=== PATIENT | female | born 1940 | race Two or more races ===

== ENCOUNTER 2020-11-11 13:07 | Inpatient (IN) | payer SELFPAY ==
[~2020-11-11] VITALS: Ht 157.5 cm; Wt 72.6 kg
[2020-11-11 13:15] VITALS: BP 134/65
[2020-11-11] MEDS ORDERED: Morphine Sulfate 4mg/ml Inj (IV USE ONLY) IVP ONE (13:30)
[2020-11-11 13:57] LABS: BASOPHILS % (AUTO) 0.4 % (0.0-2.0); EOSINOPHILS % (AUTO) 0.1 % (0.0-3.0); HEMATOCRIT 40.9 % (37.0-47.0); HEMOGLOBIN 13.6 G/DL (12.0-16.0); LYMPHOCYTES % (AUTO) 14.2 % (20.0-45.0); MEAN CORPUSCULAR VOLUME 95 FL (80-99); MONOCYTES % (AUTO) 4.1 % (1.0-10.0); NEUTROPHILS % (AUTO) 81.1 % (45.0-75.0); PLATELET COUNT 255 K/UL (150-450); RED CELL DISTRIBUTION WIDTH 11.9 % (11.6-14.8); WHITE BLOOD COUNT 12.8 K/UL (4.8-10.8)
[2020-11-11 14:04] LABS: APPEARANCE,URINE CLEAR; BILIRUBIN, URINE NEGATIVE (NEGATIVE); COLOR,URINE PALE YELLOW; GLUCOSE, URINE (UA) 4+ (NEGATIVE); KETONES,URINE NEGATIVE (NEGATIVE); LEUKOCYTE ESTERASE ,URINE NEGATIVE (NEGATIVE); NITRITE,URINE NEGATIVE (NEGATIVE); PH,URINE 5 (4.5-8.0); PROTEIN,URINE NEGATIVE (NEGATIVE); UROBILINOGEN,URINE NORMAL MG/DL (0.0-1.0)
[2020-11-11 14:14] LABS: INR 0.9 (0.9-1.1)
--- NOTE | 2020-11-11 14:17 | Diagnostic Imaging Report ---
Indication: Left hip pain, status post trip and fall Technique: Noncontrast spiral acquisitions obtained through the pelvis. Multiplanar reconstructions generated. Total dose length product 139 mGycm. CTDIvol(s) over mGy. Dose reduction achieved using automated exposure control Comparison: none Findings: This area is an angulated comminuted fracture of the left hip intertrochanteric region. No evidence of acute pelvic fracture. There is an old healed fracture deformity of the right inferior pubic ramus. No evidence of significant soft tissue contusion or pelvic hematoma. There is a small ventral hernia just below the umbilicus that contains only fat. There is colonic diverticulosis. The bladder is empty, contains a Kelly catheter. Impression: Positive for left hip intertrochanteric fracture Old healed right inferior pubic ramus fracture deformity. Other findings as noted, including Kelly catheter , colonic diverticulosis, ventral hernia which contains only fat The CT scanner at [facility] is accredited by the [employer] and the scans are performed using protocols designed to limit radiation exposure to as low as reasonably achievable to attain images of sufficient resolution adequate for diagnostic evaluation.
[2020-11-11 14:19] LABS: ANION GAP 11 mmol/L (5-15); BLOOD UREA NITROGEN 16 mg/dL (7-18); CALCIUM 9.1 MG/DL (8.5-10.1); CARBON DIOXIDE 25 MMOL/L (21-32); CHLORIDE 101 MMOL/L (98-107); CREATININE 0.9 MG/DL (0.55-1.30); POTASSIUM 3.6 MMOL/L (3.5-5.1); SODIUM 137 MMOL/L (136-145)
[2020-11-11 14:28] LABS: ALANINE AMINOTRANSFERASE 17 U/L (12-78); ALBUMIN 3.5 G/DL (3.4-5.0); ALBUMIN/GLOBULIN RATIO 0.9 (1.0-2.7); ALKALINE PHOSPHATASE 85 U/L (46-116); ASPARTATE AMINO TRANSFERASE 15 U/L (15-37); BILIRUBIN,TOTAL 0.3 MG/DL (0.2-1.0)
--- NOTE | 2020-11-11 14:30 | Emergency Room Report ---
History of Present Illness General Chief Complaint: Multiple Trauma/Fall Source: Patient Present Illness HPI Nonsyncopal fall. Left hip pain. Transported by paramedics. Patient does not remember the fall but family reported there was no loss of consciousness. Patient has 8/10 left hip pain with any movement. She is unable to ambulate. Patient denies exposure to Covid positive contacts. Patient has a history of diabetes. No fevers, chills, sore throat, chest pain, palpitations, nausea, vomiting, diarrhea, dysuria, abdominal pain, shortness of breath, rashes, dizziness, headache. Allergies: Coded Allergies: No Known Allergies (Unverified , 11/11/20) COVID-19 Screening Contact w/high risk pt: No Experienced COVID-19 symptoms?: No COVID-19 Testing performed HOME CARE COMPANION: No Patient History Past Medical History: see triage record, DM Past Surgical History: other - fracture R wrist Social History: Denies: smoking, alcohol use, drug use Social History Narrative from [facility] Reviewed Nursing Documentation: PMH: Agreed; PSxH: Agreed Nursing Documentation-PMH Hx Diabetes: Yes Review of Systems All Other Systems: negative except mentioned in HPI Physical Exam Vital Signs Date Time Temp Pulse Resp B/P (MAP) Pulse Ox O2 Delivery O2 Flow Rate FiO2 11/11/20 13:03 98.2 96 18 134/65 (88) 98 Room Air Sp02 EP Interpretation: reviewed, normal General Appearance: well appearing, no apparent distress, GCS 15 Head: normocephalic Eyes: bilateral eye normal inspection, bilateral eye PERRL, bilateral eye EOMI ENT: moist mucus membranes Neck: full range of motion, supple, no bony tend Respiratory: chest non-tender, lungs clear, normal breath sounds Cardiovascular #1: regular rate, rhythm, other - Venous disease lower extremities Cardiovascular #2: 2+ radial (R), 2+ dorsalis pedis (L) Gastrointestinal: normal inspection, normal bowel sounds, non tender, no mass, non-distended Genitourinary: no CVA tenderness Musculoskeletal: back normal, pelvis stable, tender - Left hip with any passive range of motion, other - Shortening and external rotation of left lower extremity Neurologic: alert, oriented x3, grossly normal Psychiatric: mood/affect normal Skin: warm/dry, other - Venous disease Medical Decision Making Diagnostic Impression: Primary Impression: Closed left hip fracture Qualified Codes: S72.002A - Fracture of unspecified part of neck of left femur, initial encounter for closed fracture Additional Impression: Hyperglycemia ER Course Patient presents with nonsyncopal fall with left hip pain. Differential includes hip fracture, pelvic fracture, hip contusion amongst others. Based on exam hip fracture highly suspect. Evaluation with preoperative labs and EKG. Chest x-ray and CT of the pelvis and left hip ordered. Patient analgesia ordered also. EKG no injury. Poor quality. Chest x-ray unremarkable. Labs with slightly elevated white count and elevated blood glucose. CT of the pelvis and hip revealed left hip fracture see below. Patient improved with treatment. Patient needs operative repair of left hip. Patient admitted to medical floor. Contact Dr. Haddad and Dr. Del Real. Laboratory Tests Test 11/11/20 13:20 White Blood Count 12.8 K/UL (4.8-10.8) H Red Blood Count 4.30 M/UL (4.20-5.40) Hemoglobin 13.6 G/DL (12.0-16.0) Hematocrit 40.9 % (37.0-47.0) Mean Corpuscular Volume 95 FL (80-99) Mean Corpuscular Hemoglobin 31.6 PG (27.0-31.0) H Mean Corpuscular Hemoglobin Concent 33.2 G/DL (32.0-36.0) Red Cell Distribution Width 11.9 % (11.6-14.8) Platelet Count 255 K/UL (150-450) Mean Platelet Volume 7.6 FL (6.5-10.1) Neutrophils (%) (Auto) 81.1 % (45.0-75.0) H Lymphocytes (%) (Auto) 14.2 % (20.0-45.0) L Monocytes (%) (Auto) 4.1 % (1.0-10.0) Eosinophils (%) (Auto) 0.1 % (0.0-3.0) Basophils (%) (Auto) 0.4 % (0.0-2.0) Prothrombin Time 10.3 SEC (9.30-11.50) Prothrombin Time INR 0.9 (0.9-1.1) Activated Partial Thromboplast Time 24 SEC (23-33) Urine Color Pale yellow Urine Appearance Clear Urine pH 5 (4.5-8.0) Urine Specific [place] 1.015 (1.005-1.035) Urine Protein Negative (NEGATIVE) Urine Glucose (UA) 4+ (NEGATIVE) H Urine Ketones Negative (NEGATIVE) Urine Blood Negative (NEGATIVE) Urine Nitrite Negative (NEGATIVE) Urine Bilirubin Negative (NEGATIVE) Urine Urobilinogen Normal MG/DL (0.0-1.0) Urine Leukocyte Esterase Negative (NEGATIVE) Urine RBC 0-2 /HPF (0 - 2) Urine WBC 0-2 /HPF (0 - 2) Urine Squamous Epithelial Cells Occasional /LPF Urine Bacteria Occasional /HPF (NONE) Sodium Level 137 MMOL/L (136-145) Potassium Level 3.6 MMOL/L (3.5-5.1) Chloride Level 101 MMOL/L (98-107) Carbon Dioxide Level 25 MMOL/L (21-32) Anion Gap 11 mmol/L (5-15) Blood Urea Nitrogen 16 mg/dL (7-18) Creatinine 0.9 MG/DL (0.55-1.30) Estimated Glomerular Filtration Rate > 60 mL/min (>60) Glucose Level 302 MG/DL (74-106) H Calcium Level 9.1 MG/DL (8.5-10.1) Total Bilirubin 0.3 MG/DL (0.2-1.0) Aspartate Amino Transferase (AST) 15 U/L (15-37) Alanine Aminotransferase (ALT) 17 U/L (12-78) Alkaline Phosphatase 85 U/L (46-116) Total Protein 7.4 G/DL (6.4-8.2) Albumin 3.5 G/DL (3.4-5.0) Globulin 3.9 g/dL Albumin/Globulin Ratio 0.9 (1.0-2.7) L Microbiology Date/Time Source Procedure Growth Status 11/11/20 15:00 Nasopharynx SARS-CoV-2 Antigen (Rapid)(SUZI) - Final Complete EKG Diagnostic Results Rate: normal Rhythm: NSR ST Segments: no acute changes Rhythm Strip Diag. Results EP Interpretation: yes Rhythm: NSR, no PVC's, no ectopy Chest X-Ray Diagnostic Results Chest X-Ray Diagnostic Results : Chest X-Ray Ordered: Yes # of Views/Limited/Complete: 1 View Indication: Other EP Interpretation: Yes Interpretation: no consolidation, no effusion, no pneumothorax Impression: No acute disease Electronically Signed by: Electronically signed by Jeremiah Verma MD CT/MRI/US Diagnostic Results CT/MRI/US Diagnostic Results : Imaging Test Ordered: L hip pelvis Impression Intertrochanteric fx angulated Impression: Positive for left hip intertrochanteric fracture Old healed right inferior pubic ramus fracture deformity. Other findings as noted, including Kelly catheter , colonic diverticulosis, ventral hernia which contains only fat Last Vital Signs Date Time Temp Pulse Resp B/P (MAP) Pulse Ox O2 Delivery O2 Flow Rate FiO2 11/11/20 17:52 98.2 97 18 135/77 95 Room Air Status: improved Disposition: ADMITTED INPATIENT Condition: Serious Referrals: NOT CHOSEN IPA/,REFERRING (PCP) Jeremiah Verma MD Nov 11, 2020 14:30
[2020-11-11] MEDS ORDERED: INVOKANA300 MG PO (16:31)
[2020-11-11 16:50] VITALS: BP 135/77
--- NOTE | 2020-11-11 16:51 | Diagnostic Imaging Report ---
Indication: Chest pain Technique: One view of the chest Comparison: none Findings: There is scalloping of the bilateral hemidiaphragms. The there is atelectasis at the left lateral lung base. The heart is upper limits normal in size. Lungs and pleural spaces are clear. Impression: No acute process
[2020-11-11] MEDS: NovoLOG Insulin Flexpen SUBQ SCH (19:06)
[2020-11-11 20:00] VITALS: BP 108/65
[2020-11-12] VITALS (11 sets, daily range): BP systolic 91–138; BP diastolic 45–75
[2020-11-12] MEDS: NovoLOG Insulin Flexpen SUBQ SCH ×4 (01:00→18:00)
[2020-11-12] MEDS: HYDROcodone/Acetamin 10/325 tab ORAL PRN ×2 (01:55→08:31)
[2020-11-12 06:50] LABS: BASOPHILS % (AUTO) 0.4 % (0.0-2.0); EOSINOPHILS % (AUTO) 0.1 % (0.0-3.0); HEMATOCRIT 39.1 % (37.0-47.0); LYMPHOCYTES % (AUTO) 22.5 % (20.0-45.0); MEAN CORPUSCULAR VOLUME 95 FL (80-99); MONOCYTES % (AUTO) 7.4 % (1.0-10.0); NEUTROPHILS % (AUTO) 69.6 % (45.0-75.0); PLATELET COUNT 266 K/UL (150-450); RED BLOOD COUNT 4.14 M/UL (4.20-5.40); RED CELL DISTRIBUTION WIDTH 12.1 % (11.6-14.8); WHITE BLOOD COUNT 10.6 K/UL (4.8-10.8)
[2020-11-12 07:00] LABS: ANION GAP 8 mmol/L (5-15); BLOOD UREA NITROGEN 12 mg/dL (7-18); CALCIUM 9.1 MG/DL (8.5-10.1); CARBON DIOXIDE 28 MMOL/L (21-32); CHLORIDE 102 MMOL/L (98-107); CREATININE 0.7 MG/DL (0.55-1.30); POTASSIUM 3.7 MMOL/L (3.5-5.1); SODIUM 138 MMOL/L (136-145)
--- NOTE | 2020-11-12 08:11 | Consultation ---
Consult Note Consult Note 80 yo female with fall yesterday and left hip IT fracture Lives at home with her daughter. Independent with ambulation prior to fall Hx of DM CT reviewed. Left hip IT fracture Pelvic Xray ordered Assessment/Plan Left hip IT fracture plan for ORIF tomorrow AM NPO p MN Med clearance. 2D echo ordered risks/benefits discussed. Kimberly Duran Nov 12, 2020 08:11
--- NOTE | 2020-11-12 10:01 | Anethesia Preoperative Eval ---
Anesthesia Pre-op PMH/ROS General Date of Evaluation: Nov 12, 2020 Time of Evaluation: 10:00 Anesthesiologist: [place] ASA Score: ASA 2 Mallampati Score Class I : Soft palate, uvula, fauces, pillars visible Class II: Soft palate, uvula, fauces visible Class III: Soft palate, base of uvula visible Class IV: Only hard plate visible Mallampati Classification: Class II Surgeon: Kyle Diagnosis: L femoral Fx. Surgical Procedure: ORIF Anesthesia History: none Family History: no anesthesia problems Allergies: Coded Allergies: No Known Allergies (Unverified , 11/11/20) Medications: see eMAR Patient NPO?: Yes Past Medical History Cardiovascular: Reports: HTN - borderline; Denies: CAD, SC, valve dz, arrhythmia, other Pulmonary: Denies: asthma, COPD, DEWAYNE, other Gastrointestinal/Genitourinary: Reports: GERD; Denies: CRI, ESRD, other Neurologic/Psychiatric: Reports: depression/anxiety; Denies: dementia, CVA, TIA, other Endocrine: Reports: DM, hypothyroidism; Denies: steroids, other HEENT: Denies: cataract (L), cataract (R), glaucoma, TUSCARORA (L), TUSCARORA (R), other Hematology/Immune: Reports: anemia - mild; Denies: DVT, bleeding disorder, other Musculoskeletal/Integumentary: Reports: OA; Denies: RA, DJD, DDD, edema, other Other: other - overweight PMH Narrative: as above PSxH Narrative: See H&P Anesthesia Pre-op Phys. Exam Physician Exam Last Vital Signs Date Time Temp Pulse Resp B/P (MAP) Pulse Ox O2 Delivery O2 Flow Rate FiO2 11/12/20 08:00 97.9 93 18 130/67 (88) 94 11/11/20 21:00 Room Air Constitutional: NAD Neurologic: CN 2-12 intact Cardiovascular: RRR, no M/R/G Respiratory: CTA Gastrointestinal: S/NT/ND Airway Exam Mallampati Score: Class II MO: limited Neck: stiff ROM: limited Teeth: missing Dentures: no upper, no lower Anesthesia Pre-op A/P Labs Hematology Test 11/11/20 13:20 11/12/20 05:45 White Blood Count 12.8 K/UL (4.8-10.8) H 10.6 K/UL (4.8-10.8) Red Blood Count 4.30 M/UL (4.20-5.40) 4.14 M/UL (4.20-5.40) L Hemoglobin 13.6 G/DL (12.0-16.0) 13.0 G/DL (12.0-16.0) Hematocrit 40.9 % (37.0-47.0) 39.1 % (37.0-47.0) Mean Corpuscular Volume 95 FL (80-99) 95 FL (80-99) Mean Corpuscular Hemoglobin 31.6 PG (27.0-31.0) H 31.3 PG (27.0-31.0) H Mean Corpuscular Hemoglobin Concent 33.2 G/DL (32.0-36.0) 33.2 G/DL (32.0-36.0) Red Cell Distribution Width 11.9 % (11.6-14.8) 12.1 % (11.6-14.8) Platelet Count 255 K/UL (150-450) 266 K/UL (150-450) Mean Platelet Volume 7.6 FL (6.5-10.1) 7.0 FL (6.5-10.1) Neutrophils (%) (Auto) 81.1 % (45.0-75.0) H 69.6 % (45.0-75.0) Lymphocytes (%) (Auto) 14.2 % (20.0-45.0) L 22.5 % (20.0-45.0) Monocytes (%) (Auto) 4.1 % (1.0-10.0) 7.4 % (1.0-10.0) Eosinophils (%) (Auto) 0.1 % (0.0-3.0) 0.1 % (0.0-3.0) Basophils (%) (Auto) 0.4 % (0.0-2.0) 0.4 % (0.0-2.0) Coagulation Test 11/11/20 13:20 Prothrombin Time 10.3 SEC (9.30-11.50) Prothromb Time International Ratio 0.9 (0.9-1.1) Activated Partial Thromboplast Time 24 SEC (23-33) Chemistry Test 11/11/20 13:20 11/11/20 18:47 11/12/20 01:49 11/12/20 05:05 Sodium Level 137 MMOL/L (136-145) Potassium Level 3.6 MMOL/L (3.5-5.1) Chloride Level 101 MMOL/L (98-107) Carbon Dioxide Level 25 MMOL/L (21-32) Anion Gap 11 mmol/L (5-15) Blood Urea Nitrogen 16 mg/dL (7-18) Creatinine 0.9 MG/DL (0.55-1.30) Estimat Glomerular Filtration Rate > 60 mL/min (>60) Glucose Level 302 MG/DL (74-106) H Calcium Level 9.1 MG/DL (8.5-10.1) Total Bilirubin 0.3 MG/DL (0.2-1.0) Aspartate Amino Transf (AST/SGOT) 15 U/L (15-37) Alanine Aminotransferase (ALT/SGPT) 17 U/L (12-78) Alkaline Phosphatase 85 U/L (46-116) Total Protein 7.4 G/DL (6.4-8.2) Albumin 3.5 G/DL (3.4-5.0) Globulin 3.9 g/dL Albumin/Globulin Ratio 0.9 (1.0-2.7) L POC Whole Blood Glucose 206 MG/DL (74-106) H 183 MG/DL (74-106) H 159 MG/DL (74-106) H Test 11/12/20 05:45 Sodium Level 138 MMOL/L (136-145) Potassium Level 3.7 MMOL/L (3.5-5.1) Chloride Level 102 MMOL/L (98-107) Carbon Dioxide Level 28 MMOL/L (21-32) Anion Gap 8 mmol/L (5-15) Blood Urea Nitrogen 12 mg/dL (7-18) Creatinine 0.7 MG/DL (0.55-1.30) Estimat Glomerular Filtration Rate > 60 mL/min (>60) Glucose Level 144 MG/DL (74-106) #H Calcium Level 9.1 MG/DL (8.5-10.1) Studies Pre-op Studies: EKG - SR Risk Assessment & Plan Assessment: ASA 2 Plan: SAB vs GA Status Change Before Surgery: No Pre-Antibiotics Drug: as scheduled Genaro Calabrese MD Nov 12, 2020 10:01
--- NOTE | 2020-11-12 10:11 | Consultation ---
Consult Note Consult Note UPDATE: It was not communicated to me this morning when I came to see this pt that Dr. Wright was also called on this pt and had initiated care last evening. Per discussion with Dr Wright and his team as well as [facility], pt is already set up for ORIF sx with Dr. Wright. We will defer tx to Dr Wright at this time as he will be taking care of this pt. Thank you Kimberly Duran Nov 12, 2020 10:11
--- NOTE | 2020-11-12 10:49 | Consultation ---
History of Present Illness General Date patient seen: Nov 12, 2020 Reason for Hospitalization: Multiple Trauma/Fall Present Illness HPI 80 year old female s/p nonsyncopal fall. Left hip pain. Transported by paramedics. Patient does not remember the fall but family reported there was no loss of consciousness. Patient has 8/10 left hip pain with any movement. She is unable to ambulate. surgery called to evaluate for trauma. lower extremity deformity. no loc. Patient denies exposure to Covid positive contacts Patient has a history of diabetes. No fevers, chills, sore throat, chest pain, palpitations, nausea, vomiting, diarrhea, dysuria, abdominal pain, shortness of breath, rashes, dizziness, headache. Allergies: Coded Allergies: No Known Allergies (Unverified , 11/11/20) COVID-19 Screening Contact w/high risk pt: No Experienced COVID-19 symptoms?: No Medication History Scheduled PRN Canagliflozin (Invokana), 300 MG PO DAILY PRN for DM, (Reported) Patient History History Provided By: Patient, Medical Record, PMD Healthcare decision maker Resuscitation status Advanced Directive on File Past Medical/Surgical History Past Medical/Surgical History: (1) Fall (2) Trauma (3) Hyperglycemia (4) Closed left hip fracture Review of Systems Review of Symptoms General ROS: no weight loss or fever Psychological ROS: no depression or mood changes, no memory loss Ophthalmic ROS: no visual changes or eye irritation ENT ROS: no nasal congestion, hearing loss, dizziness Allergy and Immunology ROS: no allergic symptoms or urticaria Hematological and Lymphatic ROS: no swollen glands, unusual bleeding or bruising Endocrine ROS: no polyuria, polydipsia, weight changes, temperature intolerance Respiratory ROS: no cough, shortness of breath, or wheezing Cardiovascular ROS: no chest pain or dyspnea on exertion Gastrointestinal ROS: denies abdominal pain, bright red blood in stool. Musculoskeletal ROS: no myalgias or arthralgias Neurological ROS: no TIA or stroke symptoms Dermatological ROS: no new or changing skin lesions, rashes or pruritis Physical Exam Physical Exam Sp02 EP Interpretation: reviewed, normal General Appearance: well appearing, no apparent distress, GCS 15 Head: normocephalic Eyes: bilateral eye normal inspection, bilateral eye PERRL, bilateral eye EOMI ENT: moist mucus membranes Neck: full range of motion, supple, no bony tend Respiratory: chest non-tender, lungs clear, normal breath sounds Cardiovascular #1: regular rate, rhythm, other - Venous disease lower extremities Cardiovascular #2: 2+ radial (R), 2+ dorsalis pedis (L) Gastrointestinal: normal inspection, normal bowel sounds, non tender, no mass, non-distended Genitourinary: no CVA tenderness Musculoskeletal: back normal, pelvis stable, tender - Left hip with any passive range of motion, other - Shortening and external rotation of left lower extremity Neurologic: alert, oriented x3, grossly normal Psychiatric: mood/affect normal Skin: warm/dry, other - Venous disease Last 24 Hour Vital Signs Date Time Temp Pulse Resp B/P (MAP) Pulse Ox O2 Delivery O2 Flow Rate FiO2 11/12/20 08:00 97.9 93 18 130/67 (88) 94 11/12/20 04:00 97.0 65 18 107/57 (74) 96 11/12/20 00:00 98.7 101 20 121/74 (90) 96 11/11/20 21:00 Room Air 11/11/20 20:00 98.1 99 20 108/65 (79) 95 11/11/20 17:52 98.2 97 18 135/77 95 Room Air 11/11/20 17:16 Room Air 11/11/20 16:50 98.2 97 18 135/77 (96) 95 11/11/20 13:15 96 18 Room Air 11/11/20 13:15 98.2 18 134/65 98 Room Air 11/11/20 13:03 98.2 96 18 134/65 (88) 98 Room Air Intake and Output 11/11/20 11/12/20 19:00 07:00 Output Total 500 ml 500 ml Balance -500 ml -500 ml Output Urine Total 500 ml 500 ml # Voids 1 Laboratory Tests Test 11/11/20 13:20 11/11/20 18:47 11/12/20 01:49 11/12/20 05:05 White Blood Count 12.8 K/UL (4.8-10.8) H Red Blood Count 4.30 M/UL (4.20-5.40) Hemoglobin 13.6 G/DL (12.0-16.0) Hematocrit 40.9 % (37.0-47.0) Mean Corpuscular Volume 95 FL (80-99) Mean Corpuscular Hemoglobin 31.6 PG (27.0-31.0) H Mean Corpuscular Hemoglobin Concent 33.2 G/DL (32.0-36.0) Red Cell Distribution Width 11.9 % (11.6-14.8) Platelet Count 255 K/UL (150-450) Mean Platelet Volume 7.6 FL (6.5-10.1) Neutrophils (%) (Auto) 81.1 % (45.0-75.0) H Lymphocytes (%) (Auto) 14.2 % (20.0-45.0) L Monocytes (%) (Auto) 4.1 % (1.0-10.0) Eosinophils (%) (Auto) 0.1 % (0.0-3.0) Basophils (%) (Auto) 0.4 % (0.0-2.0) Prothrombin Time 10.3 SEC (9.30-11.50) Prothromb Time International Ratio 0.9 (0.9-1.1) Activated Partial Thromboplast Time 24 SEC (23-33) Urine Color Pale yellow Urine Appearance Clear Urine pH 5 (4.5-8.0) Urine Specific [place] 1.015 (1.005-1.035) Urine Protein Negative (NEGATIVE) Urine Glucose (UA) 4+ (NEGATIVE) H Urine Ketones Negative (NEGATIVE) Urine Blood Negative (NEGATIVE) Urine Nitrite Negative (NEGATIVE) Urine Bilirubin Negative (NEGATIVE) Urine Urobilinogen Normal MG/DL (0.0-1.0) Urine Leukocyte Esterase Negative (NEGATIVE) Urine RBC 0-2 /HPF (0 - 2) Urine WBC 0-2 /HPF (0 - 2) Urine Squamous Epithelial Cells Occasional /LPF Urine Bacteria Occasional /HPF (NONE) Sodium Level 137 MMOL/L (136-145) Potassium Level 3.6 MMOL/L (3.5-5.1) Chloride Level 101 MMOL/L (98-107) Carbon Dioxide Level 25 MMOL/L (21-32) Anion Gap 11 mmol/L (5-15) Blood Urea Nitrogen 16 mg/dL (7-18) Creatinine 0.9 MG/DL (0.55-1.30) Estimat Glomerular Filtration Rate > 60 mL/min (>60) Glucose Level 302 MG/DL (74-106) H Calcium Level 9.1 MG/DL (8.5-10.1) Total Bilirubin 0.3 MG/DL (0.2-1.0) Aspartate Amino Transf (AST/SGOT) 15 U/L (15-37) Alanine Aminotransferase (ALT/SGPT) 17 U/L (12-78) Alkaline Phosphatase 85 U/L (46-116) Total Protein 7.4 G/DL (6.4-8.2) Albumin 3.5 G/DL (3.4-5.0) Globulin 3.9 g/dL Albumin/Globulin Ratio 0.9 (1.0-2.7) L POC Whole Blood Glucose 206 MG/DL (74-106) H 183 MG/DL (74-106) H 159 MG/DL (74-106) H Test 11/12/20 05:45 White Blood Count 10.6 K/UL (4.8-10.8) Red Blood Count 4.14 M/UL (4.20-5.40) L Hemoglobin 13.0 G/DL (12.0-16.0) Hematocrit 39.1 % (37.0-47.0) Mean Corpuscular Volume 95 FL (80-99) Mean Corpuscular Hemoglobin 31.3 PG (27.0-31.0) H Mean Corpuscular Hemoglobin Concent 33.2 G/DL (32.0-36.0) Red Cell Distribution Width 12.1 % (11.6-14.8) Platelet Count 266 K/UL (150-450) Mean Platelet Volume 7.0 FL (6.5-10.1) Neutrophils (%) (Auto) 69.6 % (45.0-75.0) Lymphocytes (%) (Auto) 22.5 % (20.0-45.0) Monocytes (%) (Auto) 7.4 % (1.0-10.0) Eosinophils (%) (Auto) 0.1 % (0.0-3.0) Basophils (%) (Auto) 0.4 % (0.0-2.0) Sodium Level 138 MMOL/L (136-145) Potassium Level 3.7 MMOL/L (3.5-5.1) Chloride Level 102 MMOL/L (98-107) Carbon Dioxide Level 28 MMOL/L (21-32) Anion Gap 8 mmol/L (5-15) Blood Urea Nitrogen 12 mg/dL (7-18) Creatinine 0.7 MG/DL (0.55-1.30) Estimat Glomerular Filtration Rate > 60 mL/min (>60) Glucose Level 144 MG/DL (74-106) #H Calcium Level 9.1 MG/DL (8.5-10.1) Microbiology Date/Time Source Procedure Growth Status 11/11/20 15:00 Nasopharynx SARS-CoV-2 Antigen (Rapid)(SUZI) - Final Complete Height (Feet): 5 Height (Inches): 2.00 Weight (Pounds): 160 Medications Current Medications Medications (Trade) Dose Ordered Sig/[place] Route PRN Reason Start Time Stop Time Status Last Admin Dose Admin Acetaminophen (Tylenol) 650 mg Q6H PRN ORAL Mild Pain (Pain Scale 1-3) 11/11/20 18:00 12/11/20 17:59 Acetaminophen/ Hydrocodone Bitart ([place] 10/325) 1 tab Q6H PRN ORAL Severe Pain (Pain Scale 7-10) 11/11/20 18:00 11/18/20 17:59 11/12/20 08:31 Acetaminophen/ Hydrocodone Bitart ([place] 5/325) 1 tab Q6H PRN ORAL Moderate Pain (Pain Scale 4-6) 11/11/20 18:00 11/18/20 17:59 Dextrose (Dextrose 50%) 25 ml Q30M PRN IV Hypoglycemia 11/11/20 18:00 02/09/21 17:59 Dextrose (Dextrose 50%) 50 ml Q30M PRN IV Hypoglycemia 11/11/20 18:00 02/09/21 17:59 Insulin Aspart (NovoLOG) Q6HR SUBQ 11/11/20 18:00 02/09/21 17:59 11/12/20 05:52 Lactated Ringer's 1,000 ml @ 75 mls/hr [id number] IV 11/12/20 10:45 12/12/20 10:44 UNV Assessment/Plan Problem List: (1) Hyperglycemia ICD Codes: R73.9 - Hyperglycemia, unspecified SNOMED: 20659317 (2) Closed left hip fracture ICD Codes: S72.002A - Fracture of unspecified part of neck of left femur, initial encounter for closed fracture SNOMED: 570590449 Qualifiers: Qualified Codes: S72.002A - Fracture of unspecified part of neck of left femur, initial encounter for closed fracture (3) Trauma Assessment & Plan: This area is an angulated comminuted fracture of the left hip intertrochanteric region. No evidence of acute pelvic fracture. There is an old healed fracture deformity of the right inferior pubic ramus. No evidence of significant soft tissue contusion or pelvic hematoma. There is a small ventral hernia just below the umbilicus that contains only fat. There is colonic diverticulosis. The bladder is empty, contains a Kelly cathete r. Impression: Positive for left hip intertrochanteric fracture Old healed right inferior pubic ramus fracture deformity. Other findings as noted, including Kelly catheter , colonic diverticulosis, ventral hernia which contains only fat ICD Codes: T14.90XA - Injury, unspecified, initial encounter SNOMED: 910604950 (4) Fall Assessment & Plan: 80-year-old female nonsyncopal fall closed fracture no other trauma no LOC no head injury. Imaging reviewed labs reviewed exam as above. No acute trauma general surgery fortunately isolated Ortho. Orthopedic input appreciated. Will follow with recommendations thank you for me participation's care ICD Codes: W19.XXXA - Unspecified fall, initial encounter SNOMED: [id number], [id number] Gaudencio Ramires Nov 12, 2020 10:49
--- NOTE | 2020-11-12 10:51 | History & Physical ---
History of Present Illness General Reason for Hospitalization: Multiple Trauma/Fall Present Illness HPI 80 year old female s/p nonsyncopal fall. Left hip pain. Transported by p [employer] Patient does not remember the fall but family reported there was no loss of consciousness. Patient has 8/10 left hip pain with any movement. She is unable to ambulate. surgery called to evaluate for trauma. lower extremity deformity. no loc. Patient denies exposure to Covid positive contacts Patient has a history of diabetes. No fevers, chills, sore throat, chest pain, palpitations, nausea, vomiting, diarrhea, dysuria, abdominal pain, shortness of breath, rashes, dizziness, headache. Allergies: Coded Allergies: No Known Allergies (Unverified , 11/11/20) COVID-19 Screening Contact w/high risk pt: No Experienced COVID-19 symptoms?: No Medication History Scheduled Sitagliptin (Januvia*), 100 MG ORAL DAILY, (Reported) [Varicose Vein Suppl], 450 MG PO DAILY, (Reported) Scheduled PRN Canagliflozin (Invokana), 300 MG PO DAILY PRN for DM, (Reported) Patient History Healthcare decision maker Resuscitation status Advanced Directive on File Review of Systems Review of Symptoms General ROS: no weight loss or fever Psychological ROS: no depression or mood changes, no memory loss Ophthalmic ROS: no visual changes or eye irritation ENT ROS: no nasal congestion, hearing loss, dizziness Allergy and Immunology ROS: no allergic symptoms or urticaria Hematological and Lymphatic ROS: no swollen glands, unusual bleeding or bruising Endocrine ROS: no polyuria, polydipsia, weight changes, temperature intolerance Respiratory ROS: no cough, shortness of breath, or wheezing Cardiovascular ROS: no chest pain or dyspnea on exertion Gastrointestinal ROS: denies abdominal pain, bright red blood in stool. Musculoskeletal ROS: left hip pain Neurological ROS: no TIA or stroke symptoms Dermatological ROS: no new or changing skin lesions, rashes or pruritis Physical Exam Physical Exam General appearance: alert, cooperative, no distress, appears stated age Head: Normocephalic, without obvious abnormality, atraumatic Eyes: conjunctivae/corneas clear. PERRL, EOM's intact. Fundi benign Throat: Lips, mucosa, and tongue normal. Teeth and gums normal Neck: supple, symmetrical, trachea midline, no adenopathy, thyroid: not enlarged, symmetric, no tenderness/mass/nodules, no carotid bruit and no JVD Lungs: clear to auscultation bilaterally Heart: regular rate and rhythm, S1, S2 normal, no murmur, click, rub or gallop Abdomen: soft, non-tender. Bowel sounds normal. No masses, no organomegaly Extremities: extremities normal, atraumatic, no cyanosis or edema Pulses: 2+ and symmetric Skin: Skin color, texture, turgor normal. No rashes or lesions Neurologic: Grossly normal Last 24 Hour Vital Signs Date Time Temp Pulse Resp B/P (MAP) Pulse Ox O2 Delivery O2 Flow Rate FiO2 11/12/20 08:00 97.9 93 18 130/67 (88) 94 11/12/20 04:00 97.0 65 18 107/57 (74) 96 11/12/20 00:00 98.7 101 20 121/74 (90) 96 11/11/20 21:00 Room Air 11/11/20 20:00 98.1 99 20 108/65 (79) 95 11/11/20 17:52 98.2 97 18 135/77 95 Room Air 11/11/20 17:16 Room Air 11/11/20 16:50 98.2 97 18 135/77 (96) 95 11/11/20 13:15 96 18 Room Air 11/11/20 13:15 98.2 18 134/65 98 Room Air 11/11/20 13:03 98.2 96 18 134/65 (88) 98 Room Air Intake and Output 11/11/20 11/12/20 19:00 07:00 Output Total 500 ml 500 ml Balance -500 ml -500 ml Output Urine Total 500 ml 500 ml # Voids 1 Laboratory Tests Test 11/11/20 13:20 11/11/20 18:47 11/12/20 01:49 11/12/20 05:05 White Blood Count 12.8 K/UL (4.8-10.8) H Red Blood Count 4.30 M/UL (4.20-5.40) Hemoglobin 13.6 G/DL (12.0-16.0) Hematocrit 40.9 % (37.0-47.0) Mean Corpuscular Volume 95 FL (80-99) Mean Corpuscular Hemoglobin 31.6 PG (27.0-31.0) H Mean Corpuscular Hemoglobin Concent 33.2 G/DL (32.0-36.0) Red Cell Distribution Width 11.9 % (11.6-14.8) Platelet Count 255 K/UL (150-450) Mean Platelet Volume 7.6 FL (6.5-10.1) Neutrophils (%) (Auto) 81.1 % (45.0-75.0) H Lymphocytes (%) (Auto) 14.2 % (20.0-45.0) L Monocytes (%) (Auto) 4.1 % (1.0-10.0) Eosinophils (%) (Auto) 0.1 % (0.0-3.0) Basophils (%) (Auto) 0.4 % (0.0-2.0) Prothrombin Time 10.3 SEC (9.30-11.50) Prothromb Time International Ratio 0.9 (0.9-1.1) Activated Partial Thromboplast Time 24 SEC (23-33) Urine Color Pale yellow Urine Appearance Clear Urine pH 5 (4.5-8.0) Urine Specific [place] 1.015 (1.005-1.035) Urine Protein Negative (NEGATIVE) Urine Glucose (UA) 4+ (NEGATIVE) H Urine Ketones Negative (NEGATIVE) Urine Blood Negative (NEGATIVE) Urine Nitrite Negative (NEGATIVE) Urine Bilirubin Negative (NEGATIVE) Urine Urobilinogen Normal MG/DL (0.0-1.0) Urine Leukocyte Esterase Negative (NEGATIVE) Urine RBC 0-2 /HPF (0 - 2) Urine WBC 0-2 /HPF (0 - 2) Urine Squamous Epithelial Cells Occasional /LPF Urine Bacteria Occasional /HPF (NONE) Sodium Level 137 MMOL/L (136-145) Potassium Level 3.6 MMOL/L (3.5-5.1) Chloride Level 101 MMOL/L (98-107) Carbon Dioxide Level 25 MMOL/L (21-32) Anion Gap 11 mmol/L (5-15) Blood Urea Nitrogen 16 mg/dL (7-18) Creatinine 0.9 MG/DL (0.55-1.30) Estimat Glomerular Filtration Rate > 60 mL/min (>60) Glucose Level 302 MG/DL (74-106) H Calcium Level 9.1 MG/DL (8.5-10.1) Total Bilirubin 0.3 MG/DL (0.2-1.0) Aspartate Amino Transf (AST/SGOT) 15 U/L (15-37) Alanine Aminotransferase (ALT/SGPT) 17 U/L (12-78) Alkaline Phosphatase 85 U/L (46-116) Total Protein 7.4 G/DL (6.4-8.2) Albumin 3.5 G/DL (3.4-5.0) Globulin 3.9 g/dL Albumin/Globulin Ratio 0.9 (1.0-2.7) L POC Whole Blood Glucose 206 MG/DL (74-106) H 183 MG/DL (74-106) H 159 MG/DL (74-106) H Test 11/12/20 05:45 White Blood Count 10.6 K/UL (4.8-10.8) Red Blood Count 4.14 M/UL (4.20-5.40) L Hemoglobin 13.0 G/DL (12.0-16.0) Hematocrit 39.1 % (37.0-47.0) Mean Corpuscular Volume 95 FL (80-99) Mean Corpuscular Hemoglobin 31.3 PG (27.0-31.0) H Mean Corpuscular Hemoglobin Concent 33.2 G/DL (32.0-36.0) Red Cell Distribution Width 12.1 % (11.6-14.8) Platelet Count 266 K/UL (150-450) Mean Platelet Volume 7.0 FL (6.5-10.1) Neutrophils (%) (Auto) 69.6 % (45.0-75.0) Lymphocytes (%) (Auto) 22.5 % (20.0-45.0) Monocytes (%) (Auto) 7.4 % (1.0-10.0) Eosinophils (%) (Auto) 0.1 % (0.0-3.0) Basophils (%) (Auto) 0.4 % (0.0-2.0) Sodium Level 138 MMOL/L (136-145) Potassium Level 3.7 MMOL/L (3.5-5.1) Chloride Level 102 MMOL/L (98-107) Carbon Dioxide Level 28 MMOL/L (21-32) Anion Gap 8 mmol/L (5-15) Blood Urea Nitrogen 12 mg/dL (7-18) Creatinine 0.7 MG/DL (0.55-1.30) Estimat Glomerular Filtration Rate > 60 mL/min (>60) Glucose Level 144 MG/DL (74-106) #H Calcium Level 9.1 MG/DL (8.5-10.1) Microbiology Date/Time Source Procedure Growth Status 11/11/20 15:00 Nasopharynx SARS-CoV-2 Antigen (Rapid)(SUZI) - Final Complete Height (Feet): 5 Height (Inches): 2.00 Weight (Pounds): 160 Medications Current Medications Medications (Trade) Dose Ordered Sig/[place] Route PRN Reason Start Time Stop Time Status Last Admin Dose Admin Acetaminophen (Tylenol) 650 mg Q6H PRN ORAL Mild Pain (Pain Scale 1-3) 11/11/20 18:00 12/11/20 17:59 Acetaminophen/ Hydrocodone Bitart ([place] 10/325) 1 tab Q6H PRN ORAL Severe Pain (Pain Scale 7-10) 11/11/20 18:00 11/18/20 17:59 11/12/20 08:31 Acetaminophen/ Hydrocodone Bitart ([place] 5/325) 1 tab Q6H PRN ORAL Moderate Pain (Pain Scale 4-6) 11/11/20 18:00 11/18/20 17:59 Dextrose (Dextrose 50%) 25 ml Q30M PRN IV Hypoglycemia 11/11/20 18:00 02/09/21 17:59 Dextrose (Dextrose 50%) 50 ml Q30M PRN IV Hypoglycemia 11/11/20 18:00 02/09/21 17:59 Insulin Aspart (NovoLOG) Q6HR SUBQ 11/11/20 18:00 02/09/21 17:59 11/12/20 05:52 Lactated Ringer's 1,000 ml @ 75 mls/hr [id number] IV 11/12/20 11:30 12/12/20 11:29 Assessment/Plan Diagnosis [place] I: # s/p nonsyncopal fall # Left hip pain. #left hip fracture - ortho eval - s/p Open reduction and internal fixation of left intertrochanteric fracture with intramedullary device. - pain control Technique: One view the pelvis, 2 views of the left hip Comparison: none Findings: There is an intertrochanteric fracture of the left hip. This is angulated. No right hip fracture demonstrated. No pelvic fracture. The joint spaces are preserved Impression: Positive for left hip intertrochanteric fracture MIPS Hospital declaration INPATIENT level of care is warranted for this patient because patient is a 89 year old with who presents with suspicion of . I have a high level of concern because . Patient is at high risk for . Plan of care/treatment include . Patient care is expected to be greater than 2 midnights. OBSERVATION level of care is warranted for this patient. Patient is a 89 year old with who presents with . Patient will be admitted for 1 midnight, but if additional night(s) is/are necessary, patient will be converted to inpatient status for the entire hospitalization Disposition: Once the patient is stable to leave the hospital, I anticipate the patient will likely be discharged to the following environment: Estimated discharge date: I spent 70 minutes on this patient's case, and minutes was dedicated to counseling and/or care coordination. MIPS (Merit-based Incentive Payment System) Applicable CPT: 45811, 75364 CHECK ALL THAT ARE MET: Measure #5 (CHF): All ages. Prescribe SHANTANU/ARB upon discharge for patients with left ventricular systolic dysfunction. If not, the reason is clearly documented in the medical chart. Measure #8 (CHF): All ages. Prescribe a beta nicolasa upon discharge for patients with left ventricular systolic dysfunction. If not, the reason is clearly documented in the medical chart. Measure #47 Advance care plan or surrogate decision maker documented in the medical record. Measure #130 The provider has documented, updated, or reviewed the patients current medication list and has documented it in the patients note. Measure #374 (All): Send report to referring provider. Measure #407(Sepsis due to MSSA bacteremia): Age 18+ Patient treated with a beta-lactam antibiotic (Nafcillin, Oxacillin or Cefazolin) as definitive thera py. MEDICAL COMPLEXITY High complexity medical decision making (need 2/3 categories) Problem - need 4 points Acute/new problem with new plan for workup (4 points, 1 max) Acute/new problem without additional workup (3 points, 1 max) Unstable chronic problem actively being managed (2 point each, 2 max) Stable chronic problem actively being managed (1 point each, 2 max) Self-limited/transient process (constipation, muscle ache, etc) (1 point each, 2 max) Data - need 4 points Reviewed labs/imaging studies (1 points, 2 max) Independent review of imaging (EKG, xrays, etc) (2 points, 2 max) Discussed case with consult/other MD/RN (2 points, 2 max) High Risk - qualify if have one of the following: Severe exacerbation of acute problem, acute mental status change, IV narcotics, monitoring drug levels (vancomycin, INR, tacrolimus etc) Beth Haddad M.D. Nov 12, 2020 10:51
[2020-11-12] MEDS ORDERED: LR 1000ml 1,000 ML IV SCH (11:30)
[2020-11-12] MEDS: Morphine Sulfate 2mg/ml Inj(IV/IM USE ONLY) IVP PRN ×2 (11:32→14:38)
--- NOTE | 2020-11-12 12:59 | Consultation ---
DATE OF CONSULTATION: 11/12/2020 ORTHOPEDIC CONSULTATION CONSULTING PHYSICIAN: Yasmany Hairston MD. HISTORY OF PRESENT ILLNESS: The patient is a very pleasant 80-year-old female who unfortunately had a witnessed fall yesterday at home and complained of left hip pain. She was brought to [facility] via EMS and was noted to have a left hip IT fracture. Orthopedics consult was called. She continues to have pain. She states she cannot move in bed. She has not been able to stand or walk. She is feeling miserable. Normally, she is independent with her activities and lives at home with her daughter and does not use any assistive devices for getting around. She has had 8/10 left hip pain since the fall. PAST MEDICAL HISTORY: Diabetes. PAST SURGICAL HISTORY: None. CURRENT MEDICATIONS: Please see chart. ALLERGIES: None. SOCIAL HISTORY: She is independent with activity. She lives in an apartment with her daughter. PHYSICAL EXAMINATION: She is very pleasant. She is cooperative with examination and is Hebrew speaking. The patient is seen at bedside with nurse who does help with interpretation. The patient has a shortened and externally rotated left hip with significant tenderness to palpation. She is neurovascularly intact. She can wiggle her toes. There is no skin breakdown or development of ecchymosis at this point. IMAGING: CT scan is reviewed. There is a left hip intertrochanteric fracture. There is also evidence of an old healed right-sided pubic rami fracture. IMPRESSION: Left hip intertrochanteric fracture. DISCUSSION: At this time, I discussed with the patient my findings and recommend left hip open reduction and internal fixation. She states she is nervous about this given her diabetes status as well as her age. I discussed that this certainly will work to optimize her medically prior to surgery. We will ensure she has medical clearance and I have ordered a 2D echo to be done. She understands the risks of surgery including risk of nerve injury, vessel injury, risk of infection, bleeding, fracture, hardware failure, need for revision surgery down the line as well as potential risk of exposure and infection of COVID-19, DVT, PE, as well as possible anesthesia risks including . She does understand all that. She wants to get this done. She wants to be able to walk and be independent. I discussed with her that nonsurgical treatment at this point would result in chronic pain issues and inability to be ambulatory as she previously was. She therefore does want to get this done and we talked about moving forward with this tomorrow morning after medical clearance is obtained today. All questions were answered. We will get her optimized and ready for surgery tomorrow. Thank you for allowing me to participate in the care of this patient. If there are any questions or concerns, please do not hesitate to contact me. Yasmany Hairston M.D. Shahida Dempsey DR: RAIZA JOB#: [id number] CC:
--- NOTE | 2020-11-12 13:17 | Diagnostic Imaging Report ---
Indication: Pain, trauma Technique: One view the pelvis, 2 views of the left hip Comparison: none Findings: There is an intertrochanteric fracture of the left hip. This is angulated. No right hip fracture demonstrated. No pelvic fracture. The joint spaces are preserved Impression: Positive for left hip intertrochanteric fracture
[2020-11-12] MEDS ORDERED: Lidocaine 1% Plain 30 ml INJ ONE (14:30)
[2020-11-12] MEDS ORDERED: EPINEPHrine 1mg/1ml Amp ONE (14:30)
[2020-11-12] MEDS ORDERED: Kenalog-40 1ml Vial ONE (14:33)
[2020-11-12] MEDS ORDERED: Bacitracin 50000 Units Vial ONE (14:34)
[2020-11-12] MEDS ORDERED: Bupivacaine w/Epi 0.25% 50ml vial INJ ONE (14:34)
--- NOTE | 2020-11-12 14:36 | Immediate Post-Op Evaluation ---
Immediate Post-Op Evalulation Immediate Post-Op Evalulation Procedure: ORIF L Hip Date of Evaluation: Nov 12, 2020 Time of Evaluation: 18:52 IV Fluids: 300 LR Blood Products: 0 Estimated Blood Loss: 50 Urinary Output: 0 Blood Pressure Systolic: 138 Blood Pressure Diastolic: 67 Pulse Rate: 97 Respiratory Rate: 16 O2 Sat by Pulse Oximetry: 100 Temperature (Fahrenheit): 98.2 Pain Score (1-10): 1 Nausea: No Vomiting: No Complications 0 Patient Status: awake, reacts, patent, none Hydration Status: adequate Dru Gram Ancef IV Given Within 1 Hr of Incision: Yes Time Given: 17:38 Alberto Chance MD Nov 12, 2020 14:36
--- NOTE | 2020-11-12 14:37 | 48 Hour Post Anesthesia Eval ---
Post Anesthesia Evaluation Procedure: ORIF L Hip Date of Evaluation: Nov 12, 2020 Time of Evaluation: 21:12 Blood Pressure Systolic: 128 0: 57 Pulse Rate: 84 Respiratory Rate: 18 Temperature (Fahrenheit): 98.3 O2 Sat by Pulse Oximetry: 100 Airway: patent Nausea: No Vomiting: No Pain Intensity: 1 Hydration Status: adequate Cardiopulmonary Status: Stable Mental Status/LOC: patient returned to baseline Follow-up Care/Observations: 0 Post-Anesthesia Complications: 0 Follow-up care needed: N/A Alberto Chance MD Nov 12, 2020 14:37
[2020-11-12] MEDS ORDERED: LORazepam Inj 2mg/ml 1ml IV PRN (14:45)
[2020-11-12] MEDS ORDERED: Atropine Sulfate 0.4mg/ml inj IVP PRN (14:45)
[2020-11-12] MEDS ORDERED: HYDROcodone/Acetamin 5/325 tab ORAL PRN (14:45)
[2020-11-12] MEDS ORDERED: fentaNYL 100 mcg/2 mL IV PRN (14:45)
[2020-11-12] MEDS ORDERED: LR 1000ml 1,000 ML IVLG SCH (14:45)
[2020-11-12] MEDS ORDERED: HYDROcodone/Acetamin 7.5/325 tab ORAL PRN (14:45)
[2020-11-12] MEDS ORDERED: Midazolam 2mg/2ml Inj IVP PRN (14:45)
[2020-11-12] MEDS ORDERED: Meperidine 25mg/1ml Inj (FOR RIGORS ONLY) IV PRN (14:45)
[2020-11-12] MEDS ORDERED: Labetalol 5mg/ml 20ml vial IV PRN (14:45)
[2020-11-12] MEDS ORDERED: Ketorolac 30mg Inj IV PRN ×2 (14:45)
[2020-11-12] MEDS ORDERED: DiphenhydrAMINE 50mg/ml Inj IVP PRN (14:45)
[2020-11-12] MEDS ORDERED: oxyCODONE HCL/Acetaminophen 5/325mg ORAL PRN (14:45)
[2020-11-12] MEDS ORDERED: Hydromorphone 0.5mg/0.5ml inj IVP PRN (14:45)
[2020-11-12] MEDS ORDERED: Metoclopramide 10mg/2ml Inj IVP PRN (14:45)
[2020-11-12] MEDS ORDERED: JANUVIA100 MG ORAL (14:56)
[2020-11-12] MEDS ORDERED: Sodium Chloride 10ml vial INJ ONE (14:57)
[2020-11-12] MEDS ORDERED: [UNRECOGNIZED DRUG - OTHER] PO (15:55)
--- NOTE | 2020-11-12 16:13 | Operative Note - PDOC ---
Operative Note Operative Note Pre-op Diagnosis: left hip fracture Procedure: see op report Post-op Diagnosis: same as pre-op plus Operative Findings: consistent w/pre-op dx studies Specimen: none Complications: none Condition: stable Estimated Blood Loss: none Implant(s) used?: Yes Velasquez Wright MD Nov 12, 2020 16:13
--- NOTE | 2020-11-12 16:13 | Pre-Procedure Note/Attestation ---
Pre-Procedure Note/Attestation Complete Prior to Procedure Planned Procedure: left Procedure Narrative: hip orif Indications for Procedure Pre-Operative Diagnosis: left hip fracture Attestation I attest that I discussed the nature of the procedure; its benefits; risks and complications; and alternatives (and the risks and benefits of such alternatives), prior to the procedure, with the patient (or the patient's legal telesales representative). I attest that, if there was a reasonable possibility of needing a blood transfus ion, the patient (or the patient's legal telesales representative) was given the [facility] standardized written summary, pursuant to the Bakari Bogart Blood Safety Act ([place] Health and Safety Code # 1645, as amended). I attest that I re-evaluated the patient just prior to the surgery and that there has been no change in the patient's H&P, except as documented below: Velasquez Wright MD Nov 12, 2020 16:13
[2020-11-12] MEDS ORDERED: Morphine Sulfate 2mg/ml Inj(IV/IM USE ONLY) IVP PRN ×2 (16:15)
[2020-11-12] MEDS ORDERED: Milk of Magnesia 30ml Ud ORAL PRN (16:15)
[2020-11-12] MEDS ORDERED: LR 1000ml ONE (18:00)
[2020-11-12] MEDS ORDERED: Sterile Water Irrig 1000ml IRRIG ONE (18:00)
[2020-11-12] MEDS ORDERED: NS Irrig 1000ml ONE (18:00)
[2020-11-12] MEDS ORDERED: Lidocaine 1% MPF 10mg/ml 5ml ONE (18:00)
[2020-11-12] MEDS ORDERED: ePHEDrine 50mg/ml Inj ONE (18:24)
[2020-11-12] MEDS ORDERED: NS Irrig 1000ml IRRIG ONE (18:50)
--- NOTE | 2020-11-12 20:14 | Operative Note - Dictated ---
DATE OF OPERATION: 11/12/2020 PREOPERATIVE DIAGNOSIS: Left intertrochanteric fracture. POSTOPERATIVE DIAGNOSIS: Left intertrochanteric fracture. PROCEDURE: Open reduction and internal fixation of left intertrochanteric fracture with intramedullary device. SURGEON: Velasquez Wright MD. ANESTHESIA: Spinal. INDICATION FOR PROCEDURE: The patient is a pleasant female diagnosed with left intertrochanteric fracture indicative of operative fixation. Risks, limitations, expectations, and complications were discussed in detail. All questions addressed. DESCRIPTION OF PROCEDURE: After informed consent was obtained, the patient was brought into operating room and placed under spinal anesthesia. Ancef was administered. Time-out was performed. The patient was then placed on fracture table. Reduction of the fracture was performed. Left hip was prepped and draped in a sterile manner. A lateral skin incision was then made. Guidewire was placed in the proximal femur along with the reamer. A short gamma nail was selected and placed. A 90 mm cannulated screw was placed along the neck-head junction. A 32.5 distal locking screw was placed. Skin was closed with #1 Vicryl suture, 2-0 Vicryl suture, and 3-0 Monocryl sutures. ESTIMATED BLOOD LOSS: None. COMPLICATIONS: None. SPECIMENS: None. IMPLANTS: Include [place] short gamma nail, 90 mm cannulated screw, 32.5 mm distal locking screw. DISPOSITION PLANNING: At this point, the patient will be weightbearing as tolerated on the left leg. It will take a minimum of 6 weeks for the fracture to heal. She is under the care of PMD for discharge planning when she is safe to be discharged home alternatively she longterm. She has difficulty with ambulation. She can follow up as an outpatient. Please re-consult paye. Velasquez Wright M.D. DR: AURA JOB#: [id number] CC:
--- NOTE | 2020-11-12 21:29 | Consultation ---
DATE OF CONSULTATION: 11/11/2020 ORTHOPEDIC CONSULTATION HISTORY OF PRESENT ILLNESS: The patient is a pleasant Slovenian-speaking female, presented after fall. The patient subsequently presented with left hip pain, has significant pain and discomfort. She was brought to the emergency room, diagnosed with left intertrochanteric hip fracture. Orthopedic consultation was obtained for further care and recommendation. PAST MEDICAL HISTORY: Reviewed per intake chart. PAST SURGICAL HISTORY: Reviewed per intake chart. MEDICATIONS: Reviewed per intake chart. PHYSICAL EXAMINATION: GENERAL: The patient is alert and oriented. She is resting comfortably on exam bed. EXTREMITIES: She has significant pain with internal and external rotation of the left leg. Dorsalis pedis +2. Neurovascular is normal. DIAGNOSTIC DATA: Imaging study shows two-part intertrochanteric hip fracture. ASSESSMENT: Left two-part intertrochanteric fracture. DISCUSSION: At this point, what I recommend is to go ahead and proceed with open reduction and internal fixation of the left hip. Risks, limitations, expectations, and complications of procedure were discussed in detail with the patient as well as the family. All questions were addressed. We will anticipate surgery tomorrow. We will go ahead and contact the appropriate implant companies to bring over the instrumentation. She will be made n.p.o. after midnight in anticipation of medical clearance tomorrow. Velaqsuez Wright M.D. DR: Tanner JOB#: [id number] CC:
[2020-11-12] MEDS: Docusate 100mg cap ORAL SCH (21:42)
[2020-11-12] MEDS: Aspirin Baby 81mg ORAL SCH (21:42)
[2020-11-12] MEDS: D5 1/2NS w/KCl 20mEq 1,000 ML IV SCH (21:42)
[2020-11-13] VITALS: BP 145/70
[2020-11-13] MEDS: Morphine Sulfate 2mg/ml Inj(IV/IM USE ONLY) IVP PRN ×2 (00:35→04:27)
[2020-11-13] MEDS: NovoLOG Insulin Flexpen SUBQ SCH ×5 (00:46→21:41)
[2020-11-13] MEDS: ceFAZolin 2gm/50ml Premix 50 ML IV SCH ×2 (01:04→10:21)
[2020-11-13 04:00] VITALS: BP 131/79
[2020-11-13 07:09] LABS: BASOPHILS % (AUTO) 0.4 % (0.0-2.0); HEMATOCRIT 36.5 % (37.0-47.0); MEAN CORPUSCULAR VOLUME 96 FL (80-99); MONOCYTES % (AUTO) 8.3 % (1.0-10.0); NEUTROPHILS % (AUTO) 76.3 % (45.0-75.0); PLATELET COUNT 223 K/UL (150-450); RED BLOOD COUNT 3.82 M/UL (4.20-5.40); RED CELL DISTRIBUTION WIDTH 12.5 % (11.6-14.8)
[2020-11-13 07:25] LABS: ANION GAP 10 mmol/L (5-15); BLOOD UREA NITROGEN 15 mg/dL (7-18); CALCIUM 8.4 MG/DL (8.5-10.1); CARBON DIOXIDE 26 MMOL/L (21-32); CHLORIDE 102 MMOL/L (98-107); CREATININE 0.6 MG/DL (0.55-1.30); POTASSIUM 3.7 MMOL/L (3.5-5.1); SODIUM 138 MMOL/L (136-145)
[2020-11-13 08:00] VITALS: BP 137/75
[2020-11-13] MEDS: Docusate 100mg cap ORAL SCH ×3 (09:03→16:57)
[2020-11-13] MEDS: Aspirin Baby 81mg ORAL SCH ×2 (09:03→16:57)
[2020-11-13] MEDS: HYDROcodone/Acetamin 5/325 tab ORAL PRN ×2 (09:04→17:13)
[2020-11-13] MEDS: celeBREX 200mg Cap **SURGERY PATIENTS ONLY ORAL SCH (09:04)
[2020-11-13] MEDS: D5 1/2NS w/KCl 20mEq 1,000 ML IV SCH ×2 (10:21→23:40)
--- NOTE | 2020-11-13 11:43 | Surgery Progress Note ---
Surgery Progress Note Subjective Additional Comments s/p Open reduction and internal fixation of left intertrochanteric fracture with intramedullary device. doing well comfortable no complaints Objective Last 24 Hour Vital Signs Date Time Temp Pulse Resp B/P (MAP) Pulse Ox O2 Delivery O2 Flow Rate FiO2 11/13/20 09:34 97.9 11/13/20 04:00 97.9 110 20 131/79 (96) 95 11/13/20 00:00 98.0 109 20 145/70 (95) 95 11/12/20 21:00 Room Air 11/12/20 20:00 98.1 101 20 102/75 (84) 100 11/12/20 19:35 97.9 100 20 120/60 100 Nasal Cannula 3 11/12/20 19:20 99 19 95/48 100 Nasal Cannula 3 11/12/20 19:05 99 17 109/49 100 Simple Mask 6 11/12/20 18:55 99 16 105/54 100 Simple Mask 6 11/12/20 18:50 97 19 115/52 100 Simple Mask 6 11/12/20 18:45 94 17 117/56 100 Simple Mask 6 11/12/20 18:43 98.0 98 13 138/67 100 Simple Mask 6 11/12/20 18:34 84 18 100 I&O Intake and Output 11/12/20 11/13/20 19:00 07:00 Intake Total 300 ml 700 ml Output Total 750 ml 1000 ml Balance -450 ml -300 ml Intake Oral 500 ml IV Total 300 ml 200 ml Output Urine Total 700 ml 1000 ml Estimated Blood Loss 50 ml Dressing: dry Wound: clean, dry Respiratory: clear Abdomen: soft, non-tender, present bowel sounds, non-distended Extremities: edema, no tenderness, no cyanosis Laboratory Tests Test 11/12/20 12:17 11/13/20 00:26 11/13/20 05:27 11/13/20 06:10 POC Whole Blood Glucose Pending 223 MG/DL (74-106) H 160 MG/DL (74-106) H White Blood Count 11.0 K/UL (4.8-10.8) H Red Blood Count 3.82 M/UL (4.20-5.40) L Hemoglobin 12.0 G/DL (12.0-16.0) Hematocrit 36.5 % (37.0-47.0) L Mean Corpuscular Volume 96 FL (80-99) Mean Corpuscular Hemoglobin 31.4 PG (27.0-31.0) H Mean Corpuscular Hemoglobin Concent 32.8 G/DL (32.0-36.0) Red Cell Distribution Width 12.5 % (11.6-14.8) Platelet Count 223 K/UL (150-450) Mean Platelet Volume 7.5 FL (6.5-10.1) Neutrophils (%) (Auto) 76.3 % (45.0-75.0) H Lymphocytes (%) (Auto) 15.0 % (20.0-45.0) L Monocytes (%) (Auto) 8.3 % (1.0-10.0) Eosinophils (%) (Auto) 0.0 % (0.0-3.0) Basophils (%) (Auto) 0.4 % (0.0-2.0) Sodium Level 138 MMOL/L (136-145) Potassium Level 3.7 MMOL/L (3.5-5.1) Chloride Level 102 MMOL/L (98-107) Carbon Dioxide Level 26 MMOL/L (21-32) Anion Gap 10 mmol/L (5-15) Blood Urea Nitrogen 15 mg/dL (7-18) Creatinine 0.6 MG/DL (0.55-1.30) Estimat Glomerular Filtration Rate > 60 mL/min (>60) Glucose Level 153 MG/DL (74-106) H Calcium Level 8.4 MG/DL (8.5-10.1) L Test 11/13/20 11:34 POC Whole Blood Glucose 218 MG/DL (74-106) H Plan Problems: (1) Hyperglycemia (2) Closed left hip fracture Assessment & Plan: s/p Open reduction and internal fixation of left intertrochanteric fracture with intramedullary device. (3) Trauma Assessment & Plan: This area is an angulated comminuted fracture of the left hip intertrochanteric region. No evidence of acute pelvic fracture. There is an old healed fracture deformity of the right inferior pubic ramus. No evidence of significant soft tissue contusion or pelvic hematoma. There is a small ventral hernia just below the umbilicus that contains only fat. There is colonic diverticulosis. The bladder is empty, contains a Kelly catheter. Impression: Positive for left hip intertrochanteric fracture Old healed right inferior pubic ramus fracture deformity. Other findings as noted, including Kelly catheter , colonic diverticulosis, ventral hernia which contains only fat (4) Fall Assessment & Plan: 80-year-old female nonsyncopal fall closed fracture no other trauma no LOC no head injury. Imaging reviewed labs reviewed exam as above. No acute trauma general surgery fortunately isolated Ortho. Orthopedic input appreciated. Will follow with recommendations thank you for me participation's care Gaudencio Ramires Nov 13, 2020 11:43
[2020-11-13 12:00] VITALS: BP 124/65
--- NOTE | 2020-11-13 13:00 | Internal Med Progress Note ---
Subjective Physician Name Beth Haddad Attending Physician Beth Haddad M.D. Current Medications Medications (Trade) Dose Ordered Sig/[place] Route PRN Reason Start Time Stop Time Status Last Admin Dose Admin Acetaminophen (Tylenol) 650 mg Q6H PRN ORAL Mild Pain (Pain Scale 1-3) 11/11/20 18:00 12/11/20 17:59 Acetaminophen/ Hydrocodone Bitart ([place] 10/325) 1 tab Q6H PRN ORAL Severe Pain (Pain Scale 7-10) 11/11/20 18:00 11/18/20 17:59 11/12/20 08:31 Acetaminophen/ Hydrocodone Bitart ([place] 5/325) 1 tab Q6H PRN ORAL Moderate Pain (Pain Scale 4-6) 11/11/20 18:00 11/18/20 17:59 11/13/20 09:04 Aspirin (ASA) 81 mg BID ORAL 11/12/20 21:00 12/27/20 20:59 11/13/20 09:03 Celecoxib (CeleBREX) 200 mg DAILY ORAL 11/13/20 09:00 02/11/21 08:59 11/13/20 09:04 Dextrose (Dextrose 50%) 25 ml Q30M PRN IV Hypoglycemia 11/11/20 18:00 02/09/21 17:59 Dextrose (Dextrose 50%) 50 ml Q30M PRN IV Hypoglycemia 11/11/20 18:00 02/09/21 17:59 Dextrose/ Electrolytes 1,000 ml @ 75 mls/hr [id number] IV 11/12/20 21:00 12/12/20 20:59 11/13/20 10:21 Docusate Sodium (Colace) 100 mg THREE TIMES A DAY ORAL 11/12/20 21:00 12/12/20 20:59 11/13/20 09:03 Ferrous Sulfate (Feosol) 325 mg THREE TIMES A DAY ORAL 11/12/20 21:00 02/10/21 20:59 11/13/20 09:02 Insulin Aspart (NovoLOG) AC+HS SUBQ 11/13/20 11:30 02/09/21 17:59 11/13/20 11:38 Magnesium Hydroxide (Mom) 30 ml DAILYPRN PRN ORAL Constipation 11/12/20 16:15 12/12/20 16:14 Morphine Sulfate (Morphine Sulfate) 1 mg Q3H PRN IVP Pain scale 1-3 11/12/20 16:15 11/19/20 16:14 Morphine Sulfate (Morphine Sulfate) 2 mg Q3H PRN IVP For breakthrough pain 11/12/20 11:30 11/19/20 11:29 11/13/20 04:27 Morphine Sulfate (Morphine Sulfate) 2 mg Q3H PRN IVP Moderate Pain (Pain Scale 4-6) 11/12/20 16:15 11/19/20 16:14 Ondansetron HCl (Zofran) 4 mg Q6H PRN IVP Nausea & Vomiting 11/12/20 16:15 12/12/20 16:14 Oxycodone HCl (Roxicodone) 5 mg Q4H PRN ORAL Breakthrough Pain 11/12/20 16:15 11/19/20 16:14 Pantoprazole (Protonix) 40 mg DAILY ORAL 11/13/20 09:00 12/13/20 08:59 11/13/20 09:03 Temazepam (RestoriL) 7.5 mg DAILYPRN PRN ORAL Insomnia 11/12/20 16:15 11/19/20 16:14 Allergies: Coded Allergies: No Known Allergies (Unverified , 11/11/20) ROS Limited/Unobtainable: No Constitutional: Reports: weakness HEENT: Denies: no symptoms, eye pain, blurred vision, tearing, double vision, ear pain, ear discharge, nose pain, nose congestion, throat pain, throat swelling, mouth pain, mouth swelling, other Cardiovascular: Denies: no symptoms, chest pain, edema, irregular heart rate, lightheadedness, palpitations, syncope, other Respiratory: Denies: no symptoms, cough, orthopnea, shortness of breath, SOB with excertion, SOB at rest, sputum, stridor, wheezing, other Gastrointestinal/Abdominal: Denies: no symptoms, abdomen distended, abdominal pain, black stools, tarry stools, blood in stool, constipated, diarrhea, difficulty swallowing, nausea, poor appetite, poor fluid intake, rectal bleeding, vomiting, other Genitourinary: Denies: no symptoms, burning, discharge, frequency, flank pain, hematuria, incontinence, pain, urgency, other Neurologic/Psychiatric: Denies: no symptoms, anxiety, depressed, emotional problems, headache, numbness, paresthesia, pre-existing deficit, seizure, tingling, tremors, weakness, other Subjective pain controlled Objective Last Vital Signs Date Time Temp Pulse Resp B/P (MAP) Pulse Ox O2 Delivery O2 Flow Rate FiO2 11/13/20 09:34 97.9 11/13/20 09:00 Room Air 11/13/20 08:00 109 20 137/75 (95) 94 11/12/20 19:35 3 Laboratory Tests Test 11/13/20 00:26 11/13/20 05:27 11/13/20 06:10 11/13/20 11:34 POC Whole Blood Glucose 223 MG/DL (74-106) H 160 MG/DL (74-106) H 218 MG/DL (74-106) H White Blood Count 11.0 K/UL (4.8-10.8) H Red Blood Count 3.82 M/UL (4.20-5.40) L Hemoglobin 12.0 G/DL (12.0-16.0) Hematocrit 36.5 % (37.0-47.0) L Mean Corpuscular Volume 96 FL (80-99) Mean Corpuscular Hemoglobin 31.4 PG (27.0-31.0) H Mean Corpuscular Hemoglobin Concent 32.8 G/DL (32.0-36.0) Red Cell Distribution Width 12.5 % (11.6-14.8) Platelet Count 223 K/UL (150-450) Mean Platelet Volume 7.5 FL (6.5-10.1) Neutrophils (%) (Auto) 76.3 % (45.0-75.0) H Lymphocytes (%) (Auto) 15.0 % (20.0-45.0) L Monocytes (%) (Auto) 8.3 % (1.0-10.0) Eosinophils (%) (Auto) 0.0 % (0.0-3.0) Basophils (%) (Auto) 0.4 % (0.0-2.0) Sodium Level 138 MMOL/L (136-145) Potassium Level 3.7 MMOL/L (3.5-5.1) Chloride Level 102 MMOL/L (98-107) Carbon Dioxide Level 26 MMOL/L (21-32) Anion Gap 10 mmol/L (5-15) Blood Urea Nitrogen 15 mg/dL (7-18) Creatinine 0.6 MG/DL (0.55-1.30) Estimat Glomerular Filtration Rate > 60 mL/min (>60) Glucose Level 153 MG/DL (74-106) H Calcium Level 8.4 MG/DL (8.5-10.1) L Microbiology Date/Time Source Procedure Growth Status 11/11/20 15:00 Nasopharynx SARS-CoV-2 Antigen (Rapid)(SUZI) - Final Complete Intake and Output 11/12/20 11/13/20 19:00 07:00 Intake Total 300 ml 700 ml Output Total 750 ml 1000 ml Balance -450 ml -300 ml Intake Oral 500 ml IV Total 300 ml 200 ml Output Urine Total 700 ml 1000 ml Estimated Blood Loss 50 ml Assessment/Plan Assessment/Plan # s/p nonsyncopal fall # Left hip pain. #left hip fracture - ortho eval - s/p Open reduction and internal fixation of left intertrochanteric fracture with intramedullary device. - pain control Technique: One view the pelvis, 2 views of the left hip Comparison: none Findings: There is an intertrochanteric fracture of the left hip. This is angulated. No right hip fracture demonstrated. No pelvic fracture. The joint spaces are preserved Impression: Positive for left hip intertrochanteric fracture Beth Haddad M.D. Nov 13, 2020 13:00
--- NOTE | 2020-11-13 13:56 | Diagnostic Imaging Report ---
Axial INDICATION: Pain, intraoperative TECHNIQUE: Intraoperative imaging Fluoroscopy time: 17.1 seconds Total dose: 0.3561 mGym2 Total number of images: 4 COMPARISON: 8 hours earlier FINDINGS: Intraoperative images document surgical repair of previously demonstrated intertrochanteric fracture using axillary matthew and compression screw IMPRESSION: Intraoperative imaging, as described
[2020-11-13 16:00] VITALS: BP 125/81
[2020-11-13 20:00] VITALS: BP 119/61
[2020-11-14] VITALS: BP 122/64
[2020-11-14] MEDS: HYDROcodone/Acetamin 10/325 tab ORAL PRN ×2 (03:24→15:10)
[2020-11-14 04:00] VITALS: BP 118/79
[2020-11-14 05:45] LABS: BASOPHILS % (AUTO) 0.6 % (0.0-2.0); EOSINOPHILS % (AUTO) 0.3 % (0.0-3.0); HEMATOCRIT 33.5 % (37.0-47.0); HEMOGLOBIN 11.1 G/DL (12.0-16.0); LYMPHOCYTES % (AUTO) 19.5 % (20.0-45.0); MEAN CORPUSCULAR VOLUME 95 FL (80-99); MONOCYTES % (AUTO) 7.5 % (1.0-10.0); NEUTROPHILS % (AUTO) 72.1 % (45.0-75.0); PLATELET COUNT 207 K/UL (150-450); RED BLOOD COUNT 3.54 M/UL (4.20-5.40); RED CELL DISTRIBUTION WIDTH 12.3 % (11.6-14.8); WHITE BLOOD COUNT 10.9 K/UL (4.8-10.8)
[2020-11-14 05:59] LABS: ANION GAP 10 mmol/L (5-15); BLOOD UREA NITROGEN 15 mg/dL (7-18); CALCIUM 8.1 MG/DL (8.5-10.1); CARBON DIOXIDE 23 MMOL/L (21-32); CHLORIDE 102 MMOL/L (98-107); CREATININE 0.6 MG/DL (0.55-1.30); POTASSIUM 3.7 MMOL/L (3.5-5.1); SODIUM 135 MMOL/L (136-145)
[2020-11-14] MEDS: NovoLOG Insulin Flexpen SUBQ SCH ×4 (06:26→20:40)
[2020-11-14] MEDS: Morphine Sulfate 2mg/ml Inj(IV/IM USE ONLY) IVP PRN (06:36)
[2020-11-14 08:00] VITALS: BP 118/66
[2020-11-14] MEDS: Aspirin Baby 81mg ORAL SCH ×2 (08:47→18:35)
[2020-11-14] MEDS: Docusate 100mg cap ORAL SCH ×3 (08:48→18:35)
[2020-11-14] MEDS: celeBREX 200mg Cap **SURGERY PATIENTS ONLY ORAL SCH (08:48)
--- NOTE | 2020-11-14 10:17 | Surgery Progress Note ---
Surgery Progress Note Subjective Symptoms: improved, tolerating diet, voiding well, passing flatus, pain decreased Objective Last 24 Hour Vital Signs Date Time Temp Pulse Resp B/P (MAP) Pulse Ox O2 Delivery O2 Flow Rate FiO2 11/14/20 09:00 Room Air 11/14/20 08:00 97.8 123 20 118/66 (83) 93 11/14/20 04:00 97.9 98 20 118/79 (92) 94 11/14/20 00:00 98.3 86 18 122/64 (83) 94 11/13/20 21:00 Room Air 11/13/20 20:00 98.9 96 20 119/61 (80) 94 11/13/20 17:43 97.3 11/13/20 16:00 97.3 104 20 125/81 (96) 96 11/13/20 12:00 98.8 114 20 124/65 (84) 94 I&O Intake and Output 11/13/20 11/14/20 19:00 07:00 Intake Total 850 ml 200 ml Output Total 600 ml 800 ml Balance 250 ml -600 ml Intake Oral 850 ml 200 ml Output Urine Total 600 ml 800 ml Dressing: dry Wound: clean Cardiovascular: RSR Respiratory: clear Abdomen: soft, non-tender, present bowel sounds Extremities: edema, no tenderness, no cyanosis Laboratory Tests Test 11/13/20 11:34 11/13/20 21:19 11/14/20 05:00 POC Whole Blood Glucose 218 MG/DL (74-106) H 163 MG/DL (74-106) H White Blood Count 10.9 K/UL (4.8-10.8) H Red Blood Count 3.54 M/UL (4.20-5.40) L Hemoglobin 11.1 G/DL (12.0-16.0) L Hematocrit 33.5 % (37.0-47.0) L Mean Corpuscular Volume 95 FL (80-99) Mean Corpuscular Hemoglobin 31.4 PG (27.0-31.0) H Mean Corpuscular Hemoglobin Concent 33.1 G/DL (32.0-36.0) Red Cell Distribution Width 12.3 % (11.6-14.8) Platelet Count 207 K/UL (150-450) Mean Platelet Volume 7.4 FL (6.5-10.1) Neutrophils (%) (Auto) 72.1 % (45.0-75.0) Lymphocytes (%) (Auto) 19.5 % (20.0-45.0) L Monocytes (%) (Auto) 7.5 % (1.0-10.0) Eosinophils (%) (Auto) 0.3 % (0.0-3.0) Basophils (%) (Auto) 0.6 % (0.0-2.0) Sodium Level 135 MMOL/L (136-145) L Potassium Level 3.7 MMOL/L (3.5-5.1) Chloride Level 102 MMOL/L (98-107) Carbon Dioxide Level 23 MMOL/L (21-32) Anion Gap 10 mmol/L (5-15) Blood Urea Nitrogen 15 mg/dL (7-18) Creatinine 0.6 MG/DL (0.55-1.30) Estimat Glomerular Filtration Rate > 60 mL/min (>60) Glucose Level 111 MG/DL (74-106) H Calcium Level 8.1 MG/DL (8.5-10.1) L Plan Problems: (1) Hyperglycemia (2) Closed left hip fracture Assessment & Plan: s/p Open reduction and internal fixation of left intertrochanteric fracture with intramedullary device. (3) Trauma Assessment & Plan: This area is an angulated comminuted fracture of the left hip intertrochanteric region. No evidence of acute pelvic fracture. There is an old healed fracture deformity of the right inferior pubic ramus. No evidence of significant soft tissue contusion or pelvic hematoma. There is a small ventral hernia just below the umbilicus that contains only fat. There is colonic diverticulosis. The bladder is empty, contains a Kelly catheter. Impression: Positive for left hip intertrochanteric fracture Old healed right inferior pubic ramus fracture deformity. Other findings as noted, including Kelly catheter , colonic diverticulosis, ventral hernia which contains only fat (4) Fall Assessment & Plan: 80-year-old female nonsyncopal fall closed fracture no other trauma no LOC no head injury. Imaging reviewed labs reviewed exam as above. No acute trauma general surgery fortunately isolated Ortho. Orthopedic input appreciated. Will follow with recommendations thank you for me participation's care Gaudencio Ramires Nov 14, 2020 10:17
[2020-11-14 12:00] VITALS: BP 102/58
[2020-11-14] MEDS: D5 1/2NS w/KCl 20mEq 1,000 ML IV SCH (13:00)
--- NOTE | 2020-11-14 14:13 | Internal Med Progress Note ---
Subjective Physician Name Beth Haddad Attending Physician Beth Haddad M.D. Current Medications Medications (Trade) Dose Ordered Sig/[place] Route PRN Reason Start Time Stop Time Status Last Admin Dose Admin Acetaminophen (Tylenol) 650 mg Q6H PRN ORAL Mild Pain (Pain Scale 1-3) 11/11/20 18:00 12/11/20 17:59 Acetaminophen/ Hydrocodone Bitart ([place] 10/325) 1 tab Q6H PRN ORAL Severe Pain (Pain Scale 7-10) 11/11/20 18:00 11/18/20 17:59 11/14/20 03:24 Acetaminophen/ Hydrocodone Bitart ([place] 5/325) 1 tab Q6H PRN ORAL Moderate Pain (Pain Scale 4-6) 11/11/20 18:00 11/18/20 17:59 11/13/20 17:13 Aspirin (ASA) 81 mg BID ORAL 11/12/20 21:00 12/27/20 20:59 11/14/20 08:47 Celecoxib (CeleBREX) 200 mg DAILY ORAL 11/13/20 09:00 02/11/21 08:59 11/14/20 08:48 Dextrose (Dextrose 50%) 25 ml Q30M PRN IV Hypoglycemia 11/11/20 18:00 02/09/21 17:59 Dextrose (Dextrose 50%) 50 ml Q30M PRN IV Hypoglycemia 11/11/20 18:00 02/09/21 17:59 Dextrose/ Electrolytes 1,000 ml @ 75 mls/hr [id number] IV 11/12/20 21:00 12/12/20 20:59 11/13/20 10:21 Docusate Sodium (Colace) 100 mg THREE TIMES A DAY ORAL 11/12/20 21:00 12/12/20 20:59 11/14/20 13:13 Ferrous Sulfate (Feosol) 325 mg THREE TIMES A DAY ORAL 11/12/20 21:00 02/10/21 20:59 11/14/20 13:13 Insulin Aspart (NovoLOG) AC+HS SUBQ 11/13/20 11:30 02/09/21 17:59 11/14/20 13:04 Magnesium Hydroxide (Mom) 30 ml DAILYPRN PRN ORAL Constipation 11/12/20 16:15 12/12/20 16:14 Morphine Sulfate (Morphine Sulfate) 1 mg Q3H PRN IVP Pain scale 1-3 11/12/20 16:15 11/19/20 16:14 Morphine Sulfate (Morphine Sulfate) 2 mg Q3H PRN IVP For breakthrough pain 11/12/20 11:30 11/19/20 11:29 11/14/20 06:36 Morphine Sulfate (Morphine Sulfate) 2 mg Q3H PRN IVP Moderate Pain (Pain Scale 4-6) 11/12/20 16:15 11/19/20 16:14 Ondansetron HCl (Zofran) 4 mg Q6H PRN IVP Nausea & Vomiting 11/12/20 16:15 12/12/20 16:14 Oxycodone HCl (Roxicodone) 5 mg Q4H PRN ORAL Breakthrough Pain 11/12/20 16:15 11/19/20 16:14 Pantoprazole (Protonix) 40 mg DAILY ORAL 11/13/20 09:00 12/13/20 08:59 11/14/20 08:49 Temazepam (RestoriL) 7.5 mg DAILYPRN PRN ORAL Insomnia 11/12/20 16:15 11/19/20 16:14 Allergies: Coded Allergies: No Known Allergies (Unverified , 11/11/20) ROS Limited/Unobtainable: No Constitutional: Reports: weakness HEENT: Denies: no symptoms, eye pain, blurred vision, tearing, double vision, ear pain, ear discharge, nose pain, nose congestion, throat pain, throat swelling, mouth pain, mouth swelling, other Cardiovascular: Denies: no symptoms, chest pain, edema, irregular heart rate, lightheadedness, palpitations, syncope, other Respiratory: Denies: no symptoms, cough, orthopnea, shortness of breath, SOB with excertion, SOB at rest, sputum, stridor, wheezing, other Gastrointestinal/Abdominal: Denies: no symptoms, abdomen distended, abdominal pain, black stools, tarry stools, blood in stool, constipated, diarrhea, difficulty swallowing, nausea, poor appetite, poor fluid intake, rectal bleeding, vomiting, other Genitourinary: Denies: no symptoms, burning, discharge, frequency, flank pain, hematuria, incontinence, pain, urgency, other Neurologic/Psychiatric: Denies: no symptoms, anxiety, depressed, emotional problems, headache, numbness, paresthesia, pre-existing deficit, seizure, tingling, tremors, weakness, other Subjective pain controlled Objective Last Vital Signs Date Time Temp Pulse Resp B/P (MAP) Pulse Ox O2 Delivery O2 Flow Rate FiO2 11/14/20 09:00 Room Air 11/14/20 08:00 97.8 123 20 118/66 (83) 93 11/12/20 19:35 3 Laboratory Tests Test 11/13/20 21:19 11/14/20 05:00 11/14/20 12:34 POC Whole Blood Glucose 163 MG/DL (74-106) H 166 MG/DL (74-106) H White Blood Count 10.9 K/UL (4.8-10.8) H Red Blood Count 3.54 M/UL (4.20-5.40) L Hemoglobin 11.1 G/DL (12.0-16.0) L Hematocrit 33.5 % (37.0-47.0) L Mean Corpuscular Volume 95 FL (80-99) Mean Corpuscular Hemoglobin 31.4 PG (27.0-31.0) H Mean Corpuscular Hemoglobin Concent 33.1 G/DL (32.0-36.0) Red Cell Distribution Width 12.3 % (11.6-14.8) Platelet Count 207 K/UL (150-450) Mean Platelet Volume 7.4 FL (6.5-10.1) Neutrophils (%) (Auto) 72.1 % (45.0-75.0) Lymphocytes (%) (Auto) 19.5 % (20.0-45.0) L Monocytes (%) (Auto) 7.5 % (1.0-10.0) Eosinophils (%) (Auto) 0.3 % (0.0-3.0) Basophils (%) (Auto) 0.6 % (0.0-2.0) Sodium Level 135 MMOL/L (136-145) L Potassium Level 3.7 MMOL/L (3.5-5.1) Chloride Level 102 MMOL/L (98-107) Carbon Dioxide Level 23 MMOL/L (21-32) Anion Gap 10 mmol/L (5-15) Blood Urea Nitrogen 15 mg/dL (7-18) Creatinine 0.6 MG/DL (0.55-1.30) Estimat Glomerular Filtration Rate > 60 mL/min (>60) Glucose Level 111 MG/DL (74-106) H Calcium Level 8.1 MG/DL (8.5-10.1) L Microbiology Date/Time Source Procedure Growth Status 11/11/20 15:00 Nasopharynx SARS-CoV-2 Antigen (Rapid)(SUZI) - Final Complete Intake and Output 11/13/20 11/14/20 19:00 07:00 Intake Total 850 ml 200 ml Output Total 600 ml 800 ml Balance 250 ml -600 ml Intake Oral 850 ml 200 ml Output Urine Total 600 ml 800 ml Assessment/Plan Assessment/Plan # s/p nonsyncopal fall # Left hip pain. #left hip fracture - ortho eval - s/p Open reduction and internal fixation of left intertrochanteric fracture with intramedullary device. - pain control Technique: One view the pelvis, 2 views of the left hip Comparison: none Findings: There is an intertrochanteric fracture of the left hip. This is angulated. No right hip fracture demonstrated. No pelvic fracture. The joint spaces are preserved Impression: Positive for left hip intertrochanteric fracture Beth Haddad M.D. Nov 14, 2020 14:13
[2020-11-14 16:00] VITALS: BP 116/59
[2020-11-14 20:00] VITALS: BP 101/55
[2020-11-15] VITALS: BP 121/66
[2020-11-15] MEDS: oxyCODONE 5mg IR tab ORAL PRN (03:56)
[2020-11-15 04:00] VITALS: BP 126/67
[2020-11-15] MEDS: NovoLOG Insulin Flexpen SUBQ SCH ×4 (05:49→20:42)
[2020-11-15 08:00] VITALS: BP 135/108
[2020-11-15] MEDS: Docusate 100mg cap ORAL SCH ×3 (08:51→17:43)
[2020-11-15] MEDS: Aspirin Baby 81mg ORAL SCH ×2 (08:51→17:43)
[2020-11-15] MEDS: celeBREX 200mg Cap **SURGERY PATIENTS ONLY ORAL SCH (08:51)
[2020-11-15 09:41] LABS: BASOPHILS % (AUTO) 0.3 % (0.0-2.0); EOSINOPHILS % (AUTO) 0.7 % (0.0-3.0); HEMATOCRIT 33.3 % (37.0-47.0); LYMPHOCYTES % (AUTO) 20.3 % (20.0-45.0); MEAN CORPUSCULAR VOLUME 95 FL (80-99); MONOCYTES % (AUTO) 5.8 % (1.0-10.0); NEUTROPHILS % (AUTO) 72.9 % (45.0-75.0); PLATELET COUNT 221 K/UL (150-450); RED BLOOD COUNT 3.49 M/UL (4.20-5.40); RED CELL DISTRIBUTION WIDTH 12.4 % (11.6-14.8); WHITE BLOOD COUNT 9.5 K/UL (4.8-10.8)
[2020-11-15 10:01] LABS: ANION GAP 10 mmol/L (5-15); BLOOD UREA NITROGEN 15 mg/dL (7-18); CALCIUM 8.3 MG/DL (8.5-10.1); CARBON DIOXIDE 26 MMOL/L (21-32); CHLORIDE 101 MMOL/L (98-107); CREATININE 0.6 MG/DL (0.55-1.30); POTASSIUM 3.7 MMOL/L (3.5-5.1); SODIUM 137 MMOL/L (136-145)
--- NOTE | 2020-11-15 10:03 | Cardiology Report ---
APPROVED REPORT EXAM: Two-dimensional and M-mode echocardiogram with Doppler and color Doppler. INDICATION Pre-op evaluation M-Mode DIMENSIONS IVSd0.9 (0.7-1.1cm)Left Atrium (MM)3.1 (1.6-4.0cm) LVDd4.3 (3.5-5.6cm)Aortic Root2.2 (2.0-3.7cm) PWd1.5 (0.7-1.1cm)Aortic Cusp Exc.1.9 (1.5-2.0cm) IVSs1.1 cmEPSS0.5 (>1.0cm) LVDs3.6 (2.5-4.0cm) PWs1.4 cm <Conclusion> Normal left ventricular chamber size, systolic function and wall motion. Left ventricular ejection fraction estimated to be 65 %. Borderline left ventricular hypertrophy. No evidence of pericardial effusion. All other cardiac chamber sizes are within normal limits. Focal aortic valve sclerosis with adequate cusp excursion. Thickened mitral valve leaflets with normal excursion. Mitral annulus and aortic root calcification. Pulmonic valve not well visualized. Normal tricuspid valve structure. IVC at normal size and collapsing with respiration. A color flow and spectral Doppler study was performed and revealed: Mild to moderate aortic regurgitation. Trace mitral regurgitation. Mitral diastolic velocities suggest reduced left ventricular relaxation c/w mild diastolic dysfunction (Grade I). Trace tricuspid regurgitation. Tricuspid systolic velocities suggests peak right ventricular systolic pressure of 11 mmHg
[2020-11-15 12:00] VITALS: BP 118/64
--- NOTE | 2020-11-15 12:32 | Surgery Progress Note ---
Surgery Progress Note Subjective Symptoms: improved, tolerating diet, voiding well, passing flatus, pain decreased Additional Comments no bm bowel regimen Objective Last 24 Hour Vital Signs Date Time Temp Pulse Resp B/P (MAP) Pulse Ox O2 Delivery O2 Flow Rate FiO2 11/15/20 10:51 97.6 11/15/20 09:00 Room Air 11/15/20 08:00 97.6 109 18 135/108 (117) 95 11/15/20 04:00 97.8 95 18 126/67 (86) 97 11/15/20 00:00 97.7 90 17 121/66 (84) 96 11/14/20 21:00 Room Air 11/14/20 20:00 97.9 92 17 101/55 (70) 95 11/14/20 16:00 98.7 97 18 116/59 (78) 94 I&O Intake and Output 11/14/20 11/15/20 19:00 07:00 Intake Total 400 ml Output Total 700 ml 700 ml Balance -700 ml -300 ml Intake Oral 400 ml Output Urine Total 700 ml 700 ml # Voids 1 Dressing: dry Wound: clean Cardiovascular: RSR Respiratory: clear Abdomen: soft, flat, non-tender, present bowel sounds, non-distended Extremities: no edema, no tenderness, no cyanosis Laboratory Tests Test 11/14/20 12:34 11/14/20 17:07 11/14/20 20:33 11/15/20 05:48 POC Whole Blood Glucose 166 MG/DL (74-106) H Pending 259 MG/DL (74-106) H Pending Test 11/15/20 08:26 11/15/20 08:30 White Blood Count 9.5 K/UL (4.8-10.8) Red Blood Count 3.49 M/UL (4.20-5.40) L Hemoglobin 11.0 G/DL (12.0-16.0) L Hematocrit 33.3 % (37.0-47.0) L Mean Corpuscular Volume 95 FL (80-99) Mean Corpuscular Hemoglobin 31.5 PG (27.0-31.0) H Mean Corpuscular Hemoglobin Concent 33.0 G/DL (32.0-36.0) Red Cell Distribution Width 12.4 % (11.6-14.8) Platelet Count 221 K/UL (150-450) Mean Platelet Volume 7.2 FL (6.5-10.1) Neutrophils (%) (Auto) 72.9 % (45.0-75.0) Lymphocytes (%) (Auto) 20.3 % (20.0-45.0) Monocytes (%) (Auto) 5.8 % (1.0-10.0) Eosinophils (%) (Auto) 0.7 % (0.0-3.0) Basophils (%) (Auto) 0.3 % (0.0-2.0) Sodium Level 137 MMOL/L (136-145) Potassium Level 3.7 MMOL/L (3.5-5.1) Chloride Level 101 MMOL/L (98-107) Carbon Dioxide Level 26 MMOL/L (21-32) Anion Gap 10 mmol/L (5-15) Blood Urea Nitrogen 15 mg/dL (7-18) Creatinine 0.6 MG/DL (0.55-1.30) Estimat Glomerular Filtration Rate > 60 mL/min (>60) Glucose Level 206 MG/DL (74-106) H Calcium Level 8.3 MG/DL (8.5-10.1) L Plan Problems: (1) Hyperglycemia (2) Closed left hip fracture Assessment & Plan: s/p Open reduction and internal fixation of left intertrochanteric fracture with intramedullary device. (3) Trauma Assessment & Plan: This area is an angulated comminuted fracture of the left hip intertrochanteric region. No evidence of acute pelvic fracture. There is an old healed fracture deformity of the right inferior pubic ramus. No evidence of significant soft tissue contusion or pelvic hematoma. There is a small ventral hernia just below the umbilicus that contains only fat. There is colonic diverticulosis. The bladder is empty, contains a Kelly catheter. Impression: Positive for left hip intertrochanteric fracture Old healed right inferior pubic ramus fracture deformity. Other findings as noted, including Kelly catheter , colonic diverticulosis, ventral hernia which contains only fat (4) Fall Assessment & Plan: 80-year-old female nonsyncopal fall closed fracture no other trauma no LOC no head injury. Imaging reviewed labs reviewed exam as above. No acute trauma general surgery fortunately isolated Ortho. Orthopedic input appreciated. Will follow with recommendations thank you for me participation's care Gaudencio Ramires Nov 15, 2020 12:32
[2020-11-15 16:00] VITALS: BP 117/54
--- NOTE | 2020-11-15 17:03 | Internal Med Progress Note ---
Subjective Physician Name Beth Haddad Attending Physician Beth Haddad M.D. Current Medications Medications (Trade) Dose Ordered Sig/[place] Route PRN Reason Start Time Stop Time Status Last Admin Dose Admin Acetaminophen (Tylenol) 650 mg Q6H PRN ORAL Mild Pain (Pain Scale 1-3) 11/11/20 18:00 12/11/20 17:59 Acetaminophen/ Hydrocodone Bitart ([place] 10/325) 1 tab Q6H PRN ORAL Severe Pain (Pain Scale 7-10) 11/11/20 18:00 11/18/20 17:59 11/14/20 15:10 Acetaminophen/ Hydrocodone Bitart ([place] 5/325) 1 tab Q6H PRN ORAL Moderate Pain (Pain Scale 4-6) 11/11/20 18:00 11/18/20 17:59 11/13/20 17:13 Aspirin (ASA) 81 mg BID ORAL 11/12/20 21:00 12/27/20 20:59 11/15/20 08:51 Celecoxib (CeleBREX) 200 mg DAILY ORAL 11/13/20 09:00 02/11/21 08:59 11/15/20 08:51 Dextrose (Dextrose 50%) 25 ml Q30M PRN IV Hypoglycemia 11/11/20 18:00 02/09/21 17:59 Dextrose (Dextrose 50%) 50 ml Q30M PRN IV Hypoglycemia 11/11/20 18:00 02/09/21 17:59 Docusate Sodium (Colace) 100 mg THREE TIMES A DAY ORAL 11/12/20 21:00 12/12/20 20:59 11/15/20 13:08 Ferrous Sulfate (Feosol) 325 mg THREE TIMES A DAY ORAL 11/12/20 21:00 02/10/21 20:59 11/15/20 13:08 Insulin Aspart (NovoLOG) AC+HS SUBQ 11/13/20 11:30 02/09/21 17:59 11/15/20 13:08 Magnesium Hydroxide (Mom) 30 ml DAILYPRN PRN ORAL Constipation 11/12/20 16:15 12/12/20 16:14 Morphine Sulfate (Morphine Sulfate) 1 mg Q3H PRN IVP Pain scale 1-3 11/12/20 16:15 11/19/20 16:14 Morphine Sulfate (Morphine Sulfate) 2 mg Q3H PRN IVP For breakthrough pain 11/12/20 11:30 11/19/20 11:29 11/14/20 06:36 Morphine Sulfate (Morphine Sulfate) 2 mg Q3H PRN IVP Moderate Pain (Pain Scale 4-6) 11/12/20 16:15 11/19/20 16:14 11/15/20 10:21 Ondansetron HCl (Zofran) 4 mg Q6H PRN IVP Nausea & Vomiting 11/12/20 16:15 12/12/20 16:14 Oxycodone HCl (Roxicodone) 5 mg Q4H PRN ORAL Breakthrough Pain 11/12/20 16:15 11/19/20 16:14 11/15/20 03:56 Pantoprazole (Protonix) 40 mg DAILY ORAL 11/13/20 09:00 12/13/20 08:59 11/15/20 08:51 Temazepam (RestoriL) 7.5 mg DAILYPRN PRN ORAL Insomnia 11/12/20 16:15 11/19/20 16:14 Allergies: Coded Allergies: No Known Allergies (Unverified , 11/11/20) ROS Limited/Unobtainable: No Constitutional: Reports: weakness HEENT: Denies: no symptoms, eye pain, blurred vision, tearing, double vision, ear pain, ear discharge, nose pain, nose congestion, throat pain, throat swelling, mouth pain, mouth swelling, other Cardiovascular: Denies: no symptoms, chest pain, edema, irregular heart rate, lightheadedness, palpitations, syncope, other Respiratory: Denies: no symptoms, cough, orthopnea, shortness of breath, SOB with excertion, SOB at rest, sputum, stridor, wheezing, other Gastrointestinal/Abdominal: Denies: no symptoms, abdomen distended, abdominal pain, black stools, tarry stools, blood in stool, constipated, diarrhea, difficulty swallowing, nausea, poor appetite, poor fluid intake, rectal bleeding, vomiting, other Genitourinary: Denies: no symptoms, burning, discharge, frequency, flank pain, hematuria, incontinence, pain, urgency, other Neurologic/Psychiatric: Denies: no symptoms, anxiety, depressed, emotional problems, headache, numbness, paresthesia, pre-existing deficit, seizure, tingling, tremors, weakness, other Subjective pain controlled Objective Last Vital Signs Date Time Temp Pulse Resp B/P (MAP) Pulse Ox O2 Delivery O2 Flow Rate FiO2 11/15/20 12:00 97.6 110 18 118/64 (82) 95 11/15/20 09:00 Room Air 11/12/20 19:35 3 Laboratory Tests Test 11/14/20 17:07 11/14/20 20:33 11/15/20 05:48 11/15/20 08:26 POC Whole Blood Glucose Pending 259 MG/DL (74-106) H 139 MG/DL (74-106) H White Blood Count 9.5 K/UL (4.8-10.8) Red Blood Count 3.49 M/UL (4.20-5.40) L Hemoglobin 11.0 G/DL (12.0-16.0) L Hematocrit 33.3 % (37.0-47.0) L Mean Corpuscular Volume 95 FL (80-99) Mean Corpuscular Hemoglobin 31.5 PG (27.0-31.0) H Mean Corpuscular Hemoglobin Concent 33.0 G/DL (32.0-36.0) Red Cell Distribution Width 12.4 % (11.6-14.8) Platelet Count 221 K/UL (150-450) Mean Platelet Volume 7.2 FL (6.5-10.1) Neutrophils (%) (Auto) 72.9 % (45.0-75.0) Lymphocytes (%) (Auto) 20.3 % (20.0-45.0) Monocytes (%) (Auto) 5.8 % (1.0-10.0) Eosinophils (%) (Auto) 0.7 % (0.0-3.0) Basophils (%) (Auto) 0.3 % (0.0-2.0) Test 11/15/20 08:30 11/15/20 12:41 Sodium Level 137 MMOL/L (136-145) Potassium Level 3.7 MMOL/L (3.5-5.1) Chloride Level 101 MMOL/L (98-107) Carbon Dioxide Level 26 MMOL/L (21-32) Anion Gap 10 mmol/L (5-15) Blood Urea Nitrogen 15 mg/dL (7-18) Creatinine 0.6 MG/DL (0.55-1.30) Estimat Glomerular Filtration Rate > 60 mL/min (>60) Glucose Level 206 MG/DL (74-106) H Calcium Level 8.3 MG/DL (8.5-10.1) L POC Whole Blood Glucose Pending Intake and Output 11/14/20 11/15/20 19:00 07:00 Intake Total 400 ml Output Total 700 ml 700 ml Balance -700 ml -300 ml Intake Oral 400 ml Output Urine Total 700 ml 700 ml # Voids 1 Assessment/Plan Assessment/Plan # s/p nonsyncopal fall # Left hip pain. #left hip fracture - ortho eval - s/p Open reduction and internal fixation of left intertrochanteric fracture with intramedullary device. - pain control Technique: One view the pelvis, 2 views of the left hip Comparison: none Findings: There is an intertrochanteric fracture of the left hip. This is angulated. No right hip fracture demonstrated. No pelvic fracture. The joint spaces are preserved Impression: Positive for left hip intertrochanteric fracture Beth Haddad M.D. Nov 15, 2020 17:02
[2020-11-15 20:00] VITALS: BP 142/69
[2020-11-15] MEDS: HYDROcodone/Acetamin 10/325 tab ORAL PRN (20:39)
[2020-11-16] VITALS: BP 115/67
[2020-11-16 04:00] VITALS: BP 117/69
[2020-11-16] MEDS: NovoLOG Insulin Flexpen SUBQ SCH ×4 (06:12→20:19)
[2020-11-16 08:00] VITALS: BP 134/68
--- NOTE | 2020-11-16 08:41 | Internal Med Progress Note ---
Subjective Physician Name Beth Haddad Attending Physician Beth Haddad M.D. Current Medications Medications (Trade) Dose Ordered Sig/[place] Route PRN Reason Start Time Stop Time Status Last Admin Dose Admin Acetaminophen (Tylenol) 650 mg Q6H PRN ORAL Mild Pain (Pain Scale 1-3) 11/11/20 18:00 12/11/20 17:59 Acetaminophen/ Hydrocodone Bitart ([place] 10/325) 1 tab Q6H PRN ORAL Severe Pain (Pain Scale 7-10) 11/11/20 18:00 11/18/20 17:59 11/15/20 20:39 Acetaminophen/ Hydrocodone Bitart ([place] 5/325) 1 tab Q6H PRN ORAL Moderate Pain (Pain Scale 4-6) 11/11/20 18:00 11/18/20 17:59 11/13/20 17:13 Aspirin (ASA) 81 mg BID ORAL 11/12/20 21:00 12/27/20 20:59 11/15/20 17:43 Celecoxib (CeleBREX) 200 mg DAILY ORAL 11/13/20 09:00 02/11/21 08:59 11/15/20 08:51 Dextrose (Dextrose 50%) 25 ml Q30M PRN IV Hypoglycemia 11/11/20 18:00 02/09/21 17:59 Dextrose (Dextrose 50%) 50 ml Q30M PRN IV Hypoglycemia 11/11/20 18:00 02/09/21 17:59 Docusate Sodium (Colace) 100 mg THREE TIMES A DAY ORAL 11/12/20 21:00 12/12/20 20:59 11/15/20 17:43 Ferrous Sulfate (Feosol) 325 mg THREE TIMES A DAY ORAL 11/12/20 21:00 02/10/21 20:59 11/15/20 17:43 Insulin Aspart (NovoLOG) AC+HS SUBQ 11/13/20 11:30 02/09/21 17:59 11/15/20 20:42 Magnesium Hydroxide (Mom) 30 ml DAILYPRN PRN ORAL Constipation 11/12/20 16:15 12/12/20 16:14 Morphine Sulfate (Morphine Sulfate) 1 mg Q3H PRN IVP Pain scale 1-3 11/12/20 16:15 11/19/20 16:14 Morphine Sulfate (Morphine Sulfate) 2 mg Q3H PRN IVP For breakthrough pain 11/12/20 11:30 11/19/20 11:29 11/14/20 06:36 Morphine Sulfate (Morphine Sulfate) 2 mg Q3H PRN IVP Moderate Pain (Pain Scale 4-6) 11/12/20 16:15 11/19/20 16:14 11/15/20 10:21 Ondansetron HCl (Zofran) 4 mg Q6H PRN IVP Nausea & Vomiting 11/12/20 16:15 12/12/20 16:14 Oxycodone HCl (Roxicodone) 5 mg Q4H PRN ORAL Breakthrough Pain 11/12/20 16:15 11/19/20 16:14 11/15/20 03:56 Pantoprazole (Protonix) 40 mg DAILY ORAL 11/13/20 09:00 12/13/20 08:59 11/15/20 08:51 Temazepam (RestoriL) 7.5 mg DAILYPRN PRN ORAL Insomnia 11/12/20 16:15 11/19/20 16:14 Allergies: Coded Allergies: No Known Allergies (Unverified , 11/11/20) ROS Limited/Unobtainable: No HEENT: Denies: no symptoms, eye pain, blurred vision, tearing, double vision, ear pain, ear discharge, nose pain, nose congestion, throat pain, throat swelling, mouth pain, mouth swelling, other Cardiovascular: Denies: no symptoms, chest pain, edema, irregular heart rate, lightheadedness, palpitations, syncope, other Respiratory: Denies: no symptoms, cough, orthopnea, shortness of breath, SOB with excertion, SOB at rest, sputum, stridor, wheezing, other Gastrointestinal/Abdominal: Denies: no symptoms, abdomen distended, abdominal pain, black stools, tarry stools, blood in stool, constipated, diarrhea, difficulty swallowing, nausea, poor appetite, poor fluid intake, rectal bleeding, vomiting, other Genitourinary: Denies: no symptoms, burning, discharge, frequency, flank pain, hematuria, incontinence, pain, urgency, other Neurologic/Psychiatric: Denies: no symptoms, anxiety, depressed, emotional problems, headache, numbness, paresthesia, pre-existing deficit, seizure, tingling, tremors, weakness, other All Systems: reviewed and negative except above Subjective pain controlled Objective Last Vital Signs Date Time Temp Pulse Resp B/P (MAP) Pulse Ox O2 Delivery O2 Flow Rate FiO2 11/16/20 08:00 98.0 110 18 134/68 (90) 98 11/15/20 21:00 Room Air 11/12/20 19:35 3 Laboratory Tests Test 11/15/20 12:41 11/15/20 17:08 11/15/20 20:37 11/16/20 05:49 POC Whole Blood Glucose Pending 173 MG/DL (74-106) H 264 MG/DL (74-106) H 102 MG/DL (74-106) Intake and Output 11/15/20 11/16/20 19:00 07:00 Intake Total 240 ml Balance 240 ml Other 240 ml # Voids 6 3 Assessment/Plan Assessment/Plan # s/p nonsyncopal fall # Left hip pain. #left hip fracture - ortho eval - s/p Open reduction and internal fixation of left intertrochanteric fracture with intramedullary device. - pain control Technique: One view the pelvis, 2 views of the left hip Comparison: none Findings: There is an intertrochanteric fracture of the left hip. This is angulated. No right hip fracture demonstrated. No pelvic fracture. The joint spaces are preserved Impression: Positive for left hip intertrochanteric fracture Beth Haddad M.D. Nov 16, 2020 08:41
[2020-11-16] MEDS: Docusate 100mg cap ORAL SCH ×3 (09:29→17:16)
[2020-11-16] MEDS: celeBREX 200mg Cap **SURGERY PATIENTS ONLY ORAL SCH (09:29)
[2020-11-16] MEDS: Aspirin Baby 81mg ORAL SCH ×2 (09:30→17:14)
[2020-11-16] MEDS: HYDROcodone/Acetamin 10/325 tab ORAL PRN (09:30)
--- NOTE | 2020-11-16 09:53 | Surgery Progress Note ---
Surgery Progress Note Subjective Symptoms: improved, tolerating diet, voiding well, passing flatus, pain decreased Objective Last 24 Hour Vital Signs Date Time Temp Pulse Resp B/P (MAP) Pulse Ox O2 Delivery O2 Flow Rate FiO2 11/16/20 08:00 98.0 110 18 134/68 (90) 98 11/16/20 04:00 97.7 90 17 117/69 (85) 95 11/16/20 00:00 97.0 92 18 115/67 (83) 95 11/15/20 21:00 Room Air 11/15/20 20:00 97.4 92 18 142/69 (93) 95 11/15/20 16:00 97.9 99 18 117/54 (75) 94 11/15/20 12:00 97.6 110 18 118/64 (82) 95 11/15/20 12:00 97.6 105 18 118/64 (82) 95 11/15/20 10:51 97.6 I&O Intake and Output 11/15/20 11/16/20 19:00 07:00 Intake Total 240 ml Balance 240 ml Other 240 ml # Voids 6 3 Dressing: dry Wound: clean Cardiovascular: RSR Respiratory: clear Abdomen: soft, flat, non-tender, present bowel sounds, non-distended Extremities: no edema, no tenderness, no cyanosis Laboratory Tests Test 11/15/20 12:41 11/15/20 17:08 11/15/20 20:37 11/16/20 05:49 POC Whole Blood Glucose Pending 173 MG/DL (74-106) H 264 MG/DL (74-106) H 102 MG/DL (74-106) Plan Problems: (1) Hyperglycemia (2) Closed left hip fracture Assessment & Plan: s/p Open reduction and internal fixation of left intertrochanteric fracture with intramedullary device. (3) Trauma Assessment & Plan: This area is an angulated comminuted fracture of the left hip intertrochanteric region. No evidence of acute pelvic fracture. There is an old healed fracture deformity of the right inferior pubic ramus. No evidence of significant soft tissue contusion or pelvic hematoma. There is a small ventral hernia just below the umbilicus that contains only fat. There is colonic diverticulosis. The bladder is empty, contains a Kelly catheter. Impression: Positive for left hip intertrochanteric fracture Old healed right inferior pubic ramus fracture deformity. Other findings as noted, including Kelly catheter , colonic diverticulosis, ventral hernia which contains only fat (4) Fall Assessment & Plan: 80-year-old female nonsyncopal fall closed fracture no other trauma no LOC no head injury. Imaging reviewed labs reviewed exam as above. No acute trauma general surgery fortunately isolated Ortho. Orthopedic input appreciated. Will follow with recommendations thank you for me participation's care Gaudencio Ramires Nov 16, 2020 09:53
[2020-11-16 12:00] VITALS: BP 118/63
[2020-11-16 16:00] VITALS: BP 106/71
[2020-11-16 20:00] VITALS: BP 122/62
[2020-11-17] VITALS: BP 126/69
[2020-11-17 04:00] VITALS: BP 112/70
[2020-11-17] MEDS: NovoLOG Insulin Flexpen SUBQ SCH ×4 (05:54→20:15)
[2020-11-17 08:00] VITALS: BP 119/72
[2020-11-17] MEDS: celeBREX 200mg Cap **SURGERY PATIENTS ONLY ORAL SCH (09:01)
[2020-11-17] MEDS: Docusate 100mg cap ORAL SCH ×3 (09:01→17:25)
[2020-11-17] MEDS: Aspirin Baby 81mg ORAL SCH ×2 (09:01→17:25)
--- NOTE | 2020-11-17 09:59 | Surgery Progress Note ---
Surgery Progress Note Subjective Symptoms: improved, tolerating diet, voiding well, passing flatus Objective Last 24 Hour Vital Signs Date Time Temp Pulse Resp B/P (MAP) Pulse Ox O2 Delivery O2 Flow Rate FiO2 11/17/20 04:00 98.4 91 20 112/70 (84) 93 11/17/20 00:00 97.9 89 18 126/69 (88) 93 11/16/20 21:50 Room Air 11/16/20 20:00 97.8 95 18 122/62 (82) 93 11/16/20 16:00 98.7 93 18 106/71 (83) 94 11/16/20 12:00 97.6 101 18 118/63 (81) 94 I&O Intake and Output 11/16/20 11/17/20 19:00 07:00 Intake Total 600 ml Output Total 200 ml 950 ml Balance 400 ml -950 ml Intake Oral 600 ml Output Urine Total 200 ml 950 ml # Voids 3 1 Dressing: dry Wound: clean Cardiovascular: RSR Respiratory: clear Abdomen: soft, non-tender, present bowel sounds, non-distended Extremities: no edema, no tenderness, no cyanosis Laboratory Tests Test 11/16/20 12:42 11/16/20 17:13 POC Whole Blood Glucose 185 MG/DL (74-106) H Pending Plan Problems: (1) Hyperglycemia (2) Closed left hip fracture Assessment & Plan: s/p Open reduction and internal fixation of left intertrochanteric fracture with intramedullary device. (3) Trauma Assessment & Plan: This area is an angulated comminuted fracture of the left hip intertrochanteric region. No evidence of acute pelvic fracture. There is an old healed fracture deformity of the right inferior pubic ramus. No evidence of significant soft tissue contusion or pelvic hematoma. There is a small ventral hernia just below the umbilicus that contains only fat. There is colonic diverticulosis. The bladder is empty, contains a Kelly catheter. Impression: Positive for left hip intertrochanteric fracture Old healed right inferior pubic ramus fracture deformity. Other findings as noted, including Kelly catheter , colonic diverticulosis, ventral hernia which contains only fat (4) Fall Assessment & Plan: 80-year-old female nonsyncopal fall closed fracture no other trauma no LOC no head injury. Imaging reviewed labs reviewed exam as above. No acute trauma general surgery fortunately isolated Ortho. Orthopedic input appreciated. Will follow with recommendations thank you for me participation's care Gaudencio Ramires Nov 17, 2020 09:59
[2020-11-17] MEDS ORDERED: Milk of Magnesia 30ml Ud ORAL PRN (10:00)
[2020-11-17] MEDS ORDERED: Milk of Magnesia 30ml Ud ORAL SCH (10:00)
--- NOTE | 2020-11-17 10:18 | Internal Med Progress Note ---
Subjective Physician Name Beth Haddad Attending Physician Beth Haddad M.D. Current Medications Medications (Trade) Dose Ordered Sig/[place] Route PRN Reason Start Time Stop Time Status Last Admin Dose Admin Acetaminophen (Tylenol) 650 mg Q6H PRN ORAL Mild Pain (Pain Scale 1-3) 11/11/20 18:00 12/11/20 17:59 Acetaminophen/ Hydrocodone Bitart ([place] 10/325) 1 tab Q6H PRN ORAL Severe Pain (Pain Scale 7-10) 11/11/20 18:00 11/18/20 17:59 11/16/20 09:30 Acetaminophen/ Hydrocodone Bitart ([place] 5/325) 1 tab Q6H PRN ORAL Moderate Pain (Pain Scale 4-6) 11/11/20 18:00 11/18/20 17:59 11/13/20 17:13 Aspirin (ASA) 81 mg BID ORAL 11/12/20 21:00 12/27/20 20:59 11/17/20 09:01 Celecoxib (CeleBREX) 200 mg DAILY ORAL 11/13/20 09:00 02/11/21 08:59 11/17/20 09:01 Dextrose (Dextrose 50%) 25 ml Q30M PRN IV Hypoglycemia 11/11/20 18:00 02/09/21 17:59 Dextrose (Dextrose 50%) 50 ml Q30M PRN IV Hypoglycemia 11/11/20 18:00 02/09/21 17:59 Docusate Sodium (Colace) 100 mg THREE TIMES A DAY ORAL 11/12/20 21:00 12/12/20 20:59 11/17/20 09:01 Ferrous Sulfate (Feosol) 325 mg THREE TIMES A DAY ORAL 11/12/20 21:00 02/10/21 20:59 11/17/20 09:01 Insulin Aspart (NovoLOG) AC+HS SUBQ 11/13/20 11:30 02/09/21 17:59 11/17/20 05:54 Magnesium Hydroxide (Mom) 30 ml DAILYPRN PRN ORAL Constipation 11/17/20 10:00 12/17/20 09:59 Magnesium Hydroxide (Mom) 30 ml ONCE ORAL 11/17/20 10:00 11/17/20 12:00 Morphine Sulfate (Morphine Sulfate) 1 mg Q3H PRN IVP Pain scale 1-3 11/12/20 16:15 11/19/20 16:14 Morphine Sulfate (Morphine Sulfate) 2 mg Q3H PRN IVP For breakthrough pain 11/12/20 11:30 11/19/20 11:29 11/14/20 06:36 Morphine Sulfate (Morphine Sulfate) 2 mg Q3H PRN IVP Moderate Pain (Pain Scale 4-6) 11/12/20 16:15 11/19/20 16:14 11/15/20 10:21 Ondansetron HCl (Zofran) 4 mg Q6H PRN IVP Nausea & Vomiting 11/12/20 16:15 12/12/20 16:14 Oxycodone HCl (Roxicodone) 5 mg Q4H PRN ORAL Breakthrough Pain 11/12/20 16:15 11/19/20 16:14 11/15/20 03:56 Pantoprazole (Protonix) 40 mg DAILY ORAL 11/13/20 09:00 12/13/20 08:59 11/17/20 09:01 Temazepam (RestoriL) 7.5 mg DAILYPRN PRN ORAL Insomnia 11/12/20 16:15 11/19/20 16:14 Allergies: Coded Allergies: No Known Allergies (Unverified , 11/11/20) Subjective pain controlled Objective Last Vital Signs Date Time Temp Pulse Resp B/P (MAP) Pulse Ox O2 Delivery O2 Flow Rate FiO2 11/17/20 04:00 98.4 91 20 112/70 (84) 93 11/16/20 21:50 Room Air 11/12/20 19:35 3 Laboratory Tests Test 11/16/20 12:42 11/16/20 17:13 POC Whole Blood Glucose 185 MG/DL (74-106) H Pending Intake and Output 11/16/20 11/17/20 19:00 07:00 Intake Total 600 ml Output Total 200 ml 950 ml Balance 400 ml -950 ml Intake Oral 600 ml Output Urine Total 200 ml 950 ml # Voids 3 1 Assessment/Plan Assessment/Plan # s/p nonsyncopal fall # Left hip pain. #left hip fracture - ortho eval - s/p Open reduction and internal fixation of left intertrochanteric fracture with intramedullary device. - pain control Technique: One view the pelvis, 2 views of the left hip Comparison: none Findings: There is an intertrochanteric fracture of the left hip. This is angulated. No right hip fracture demonstrated. No pelvic fracture. The joint spaces are preserved Impression: Positive for left hip intertrochanteric fracture Beth Haddad M.D. Nov 17, 2020 10:18
[2020-11-17] MEDS: HYDROcodone/Acetamin 10/325 tab ORAL PRN ×2 (10:48→16:48)
[2020-11-17 12:00] VITALS: BP 118/76
[2020-11-17 16:00] VITALS: BP 113/79
[2020-11-17 20:00] VITALS: BP 123/71
[2020-11-18] VITALS: BP 117/64
[2020-11-18 04:00] VITALS: BP 120/69
[2020-11-18] MEDS: HYDROcodone/Acetamin 10/325 tab ORAL PRN (05:25)
[2020-11-18] MEDS: NovoLOG Insulin Flexpen SUBQ SCH ×2 (06:01→12:35)
--- NOTE | 2020-11-18 09:56 | Internal Med Progress Note ---
Subjective Physician Name Beth Haddad Attending Physician Beth Haddad M.D. Current Medications Medications (Trade) Dose Ordered Sig/[place] Route PRN Reason Start Time Stop Time Status Last Admin Dose Admin Acetaminophen (Tylenol) 650 mg Q6H PRN ORAL Mild Pain (Pain Scale 1-3) 11/11/20 18:00 12/11/20 17:59 Acetaminophen/ Hydrocodone Bitart ([place] 10/325) 1 tab Q6H PRN ORAL Severe Pain (Pain Scale 7-10) 11/11/20 18:00 11/18/20 17:59 11/18/20 05:25 Acetaminophen/ Hydrocodone Bitart ([place] 5/325) 1 tab Q6H PRN ORAL Moderate Pain (Pain Scale 4-6) 11/11/20 18:00 11/18/20 17:59 11/13/20 17:13 Aspirin (ASA) 81 mg BID ORAL 11/12/20 21:00 12/27/20 20:59 11/17/20 17:25 Celecoxib (CeleBREX) 200 mg DAILY ORAL 11/13/20 09:00 02/11/21 08:59 11/17/20 09:01 Dextrose (Dextrose 50%) 25 ml Q30M PRN IV Hypoglycemia 11/11/20 18:00 02/09/21 17:59 Dextrose (Dextrose 50%) 50 ml Q30M PRN IV Hypoglycemia 11/11/20 18:00 02/09/21 17:59 Docusate Sodium (Colace) 100 mg THREE TIMES A DAY ORAL 11/12/20 21:00 12/12/20 20:59 11/17/20 17:25 Ferrous Sulfate (Feosol) 325 mg THREE TIMES A DAY ORAL 11/12/20 21:00 02/10/21 20:59 11/17/20 17:25 Insulin Aspart (NovoLOG) AC+HS SUBQ 11/13/20 11:30 02/09/21 17:59 11/17/20 16:50 Magnesium Hydroxide (Mom) 30 ml DAILYPRN PRN ORAL Constipation 11/17/20 10:00 12/17/20 09:59 Morphine Sulfate (Morphine Sulfate) 1 mg Q3H PRN IVP Pain scale 1-3 11/12/20 16:15 11/19/20 16:14 Morphine Sulfate (Morphine Sulfate) 2 mg Q3H PRN IVP For breakthrough pain 11/12/20 11:30 11/19/20 11:29 11/14/20 06:36 Morphine Sulfate (Morphine Sulfate) 2 mg Q3H PRN IVP Moderate Pain (Pain Scale 4-6) 11/12/20 16:15 11/19/20 16:14 11/15/20 10:21 Ondansetron HCl (Zofran) 4 mg Q6H PRN IVP Nausea & Vomiting 11/12/20 16:15 12/12/20 16:14 Oxycodone HCl (Roxicodone) 5 mg Q4H PRN ORAL Breakthrough Pain 11/12/20 16:15 11/19/20 16:14 11/15/20 03:56 Pantoprazole (Protonix) 40 mg DAILY ORAL 11/13/20 09:00 12/13/20 08:59 11/17/20 09:01 Temazepam (RestoriL) 7.5 mg DAILYPRN PRN ORAL Insomnia 11/12/20 16:15 11/19/20 16:14 Allergies: Coded Allergies: No Known Allergies (Unverified , 11/11/20) Subjective pain controlled Objective Last Vital Signs Date Time Temp Pulse Resp B/P (MAP) Pulse Ox O2 Delivery O2 Flow Rate FiO2 11/18/20 05:55 98.9 11/18/20 04:00 81 20 120/69 (86) 98 11/17/20 21:28 Room Air 11/12/20 19:35 3 Laboratory Tests Test 11/17/20 12:03 11/17/20 16:48 POC Whole Blood Glucose 178 MG/DL (74-106) H 210 MG/DL (74-106) H Intake and Output 11/17/20 11/18/20 19:00 07:00 Intake Total 380 ml Output Total 550 ml Balance 380 ml -550 ml Other 380 ml Output Urine Total 550 ml Assessment/Plan Assessment/Plan # s/p nonsyncopal fall # Left hip pain. #left hip fracture - ortho eval - s/p Open reduction and internal fixation of left intertrochanteric fracture with intramedullary device. - pain control Technique: One view the pelvis, 2 views of the left hip Comparison: none Findings: There is an intertrochanteric fracture of the left hip. This is angulated. No right hip fracture demonstrated. No pelvic fracture. The joint spaces are preserved Impression: Positive for left hip intertrochanteric fracture Beth Haddad M.D. Nov 18, 2020 09:56
[2020-11-18] MEDS: Docusate 100mg cap ORAL SCH (09:59)
[2020-11-18] MEDS: celeBREX 200mg Cap **SURGERY PATIENTS ONLY ORAL SCH (10:01)
[2020-11-18] MEDS: Aspirin Baby 81mg ORAL SCH (10:01)
[2020-11-18] MEDS: oxyCODONE 5mg IR tab ORAL PRN (10:42)
[2020-11-18 12:22] VITALS: BP 125/64
--- NOTE | 2020-11-18 13:15 | Surgery Progress Note ---
Surgery Progress Note Subjective Symptoms: improved, tolerating diet, passing flatus Objective Last 24 Hour Vital Signs Date Time Temp Pulse Resp B/P (MAP) Pulse Ox O2 Delivery O2 Flow Rate FiO2 11/18/20 12:22 98.5 108 18 125/64 (84) 96 11/18/20 09:00 Room Air 11/18/20 08:00 99.3 102 18 95 11/18/20 05:55 98.9 11/18/20 04:00 98.9 81 20 120/69 (86) 98 11/18/20 00:00 97.7 90 18 117/64 (81) 98 11/17/20 21:28 Room Air 11/17/20 20:00 98.1 87 19 123/71 (88) 98 11/17/20 17:18 98.4 11/17/20 16:00 97.4 79 19 113/79 (90) 98 I&O Intake and Output 11/17/20 11/18/20 19:00 07:00 Intake Total 380 ml Output Total 550 ml Balance 380 ml -550 ml Other 380 ml Output Urine Total 550 ml Cardiovascular: RSR Respiratory: clear Abdomen: soft, non-tender, present bowel sounds Extremities: no edema, no tenderness, no cyanosis Laboratory Tests Test 11/17/20 16:48 11/18/20 12:09 POC Whole Blood Glucose 210 MG/DL (74-106) H 167 MG/DL (74-106) H Plan Problems: (1) Hyperglycemia (2) Closed left hip fracture Assessment & Plan: s/p Open reduction and internal fixation of left intertrochanteric fracture with intramedullary device. (3) Trauma Assessment & Plan: This area is an angulated comminuted fracture of the left hip intertrochanteric region. No evidence of acute pelvic fracture. There is an old healed fracture deformity of the right inferior pubic ramus. No evidence of significant soft tissue contusion or pelvic hematoma. There is a small ventral hernia just below the umbilicus that contains only fat. There is colonic diverticulosis. The bladder is empty, contains a Kelly catheter. Impression: Positive for left hip intertrochanteric fracture Old healed right inferior pubic ramus fracture deformity. Other findings as noted, including Kelly catheter , colonic diverticulosis, ventral hernia which contains only fat (4) Fall Assessment & Plan: 80-year-old female nonsyncopal fall closed fracture no other trauma no LOC no head injury. Imaging reviewed labs reviewed exam as above. No acute trauma general surgery fortunately isolated Ortho. Orthopedic input appreciated. Will follow with recommendations thank you for me participation's care Gaudencio Ramires Nov 18, 2020 13:15
--- NOTE | 2020-11-19 11:37 | Discharge Summary ---
Discharge Summary Discharge Summary _ Date of admission: 11/11/2020 Date of discharge: 11/18/[address] Haddad History of Present Illness and Brief Hospital Course Ms. Patterson is an 80-year-old female with past medical history of diabetes mellitus, who presented to the ED after a nonsyncopal fall. Patient complained of left hip pain. Patient's family reported there was no loss of consciousness. CT of the hip was positive for left hip intratrochanteric fracture. An old healed right inferior pubic ramus fracture deformity, colonic diverticulosis, and fat-containing ventral hernia were also demonstrated. Patient was admitted to the hospital for ORIF of left hip. Patient underwent open reduction and internal fixation of left intertrochanteric fracture with intramedullary device. Patient tolerated the procedure well. The details of the procedure can be found in the operative note by Dr. Wright. Patient was found to be tolerating diet, and passing flatus. Patient was medically stable for discharge and was discharged home on 12/16/2020. Consultants: Orthopedic surgeon Dr. Wright Surgery Dr. Ramires Discharge Condition Improved and stable Discharge Activity Advance as tolerated Final diagnoses Nonsyncopal fall Closed left hip fracture, s/p ORIF Hyperglycemia I have been assigned to dictate discharge summary for this account. I was not involved in the patient's management Ramses Hussein Nov 19, 2020 11:37
--- NOTE | 2020-11-19 19:21 | Cardiology Report ---
APPROVED REPORT EKG Measurement Heart [id number] MI 160P [id number] <Conclusion> Sinus rhythm with fusion complexes Right superior axis deviation RBBB T wave abnormality, consider inferior ischemia T wave abnormality, consider anterolateral ischemia Abnormal ECG
== END 2020-11-18 13:00 | disposition home or self-care (01) | DRG 482 ==
LOC: EDBD 13:07 → EMR 14:02 → 4E 14:05 → EDBEDREQ 15:32 → 4E 16:25
PROC: 0QS706Z Reposition Left Upper Femur with Intramedullary Internal Fixation Device, Open Approach (ICD-10-PCS; principal; 2020-11-12 17:00)
DX: S72.142A Displaced intertrochanteric fracture of left femur, initial encounter for closed fracture (principal); W19.XXXA Unspecified fall, initial encounter; Y92.009 Unspecified place in unspecified non-institutional (private) residence as the place of occurrence of the external cause; I10 Essential (primary) hypertension; K43.9 Ventral hernia without obstruction or gangrene; K57.90 Diverticulosis of intestine, part unspecified, without perforation or abscess without bleeding; R73.9 Hyperglycemia, unspecified; S32.591D Other specified fracture of right pubis, subsequent encounter for fracture with routine healing
CPT/HCPCS: 36415; 71045; 72192; 73502; 76000; 80048; 80053; 81001; 82962; 85025; 85610; 85730; 86850; 86900; 86901; 93005; 93306; 94003; 94150; 96374; 96375; 99285; J1815; J2405

== ENCOUNTER 2020-11-26 18:44 | Emergency (ER) | payer MEDICAID ==
[~2020-11-26] VITALS: Ht 157.5 cm; Wt 47.6 kg
[~2020-11-26 18:44] MED LIST: INVOKANA300 MG PO; JANUVIA100 MG ORAL; [UNRECOGNIZED DRUG - OTHER] PO
--- NOTE | 2020-11-26 20:00 | NUR ---
Pte came to ER ambulatory c/o left hip pain since this morning , pte refer she had a hip surgery in this hospital. Will continue to monitor.
[2020-11-26 20:32] VITALS: BP 127/75
--- NOTE | 2020-11-26 21:07 | Emergency Room Report ---
History of Present Illness General Chief Complaint: Pain Source: Patient, Family Member Present Illness HPI She is accompanied by her daughter. The patient was discharged here from [facility] on November 18. The patient continues to have pain in her left hip. The family member the patient reports that she was only given Tylenol to use for pain management. She continues to have pain and she cannot sleep at night. She has not followed up with the orthopedic surgeon who did the surgery. She states that she was not given instructions at discharge on when or who she was supposed to follow-up. Her daughter also reports that when she is having a bowel movement and straining, she notes that there is a bulge that looks like a blood vessel from the anus. She states this is mainly when she is straining. She is requesting a prescription for pain medicine. She has no other complaints. Allergies: Coded Allergies: No Known Allergies (Unverified , 11/11/20) COVID-19 Screening Contact w/high risk pt: No Experienced COVID-19 symptoms?: No COVID-19 Testing performed [employer]ICIAN: No Patient History Past Medical History: see triage record, DM Past Surgical History: other - L. Hip ORIF 11/12 Social History: Denies: smoking, alcohol use, drug use Reviewed Nursing Documentation: PMH: Agreed; PSxH: Agreed Nursing Documentation-PMH Hx Cardiac Problems: No Hx Diabetes: Yes Hx Cancer: No Hx Gastrointestinal Problems: No Hx Neurological Problems: No Review of Systems All Other Systems: negative except mentioned in HPI Physical Exam Vital Signs Date Time Temp Pulse Resp B/P (MAP) Pulse Ox O2 Delivery O2 Flow Rate FiO2 11/26/20 20:00 98.6 106 20 136/66 (89) 94 Room Air Sp02 EP Interpretation: reviewed, normal General Appearance: no apparent distress, alert, GCS 15, non-toxic Head: normocephalic, atraumatic Eyes: bilateral eye normal inspection ENT: hearing grossly normal, normal pharynx, no angioedema, normal voice Neck: normal inspection, full range of motion Respiratory: no respiratory distress, no retraction, no accessory muscle use, speaking full sentences Rectal: deferred Musculoskeletal: back normal, normal range of motion, other - Surgical incision sites healing well, no surrounding erythema or swelling, dressings clean. Neurologic: alert, responsive, speech normal, grossly normal Psychiatric: normal inspection, mood/affect normal Skin: no rash, normal color, other - See above in [facility] Medical Decision Making Diagnostic Impression: Primary Impression: Post-operative pain Additional Impression: External hemorrhoid ER Course The patient is complaining of pain at the postoperative site ever since being discharged. There has been no increase or change in the pain. The patient is requesting a stronger pain medication as the Tylenol she is working is not working. I am concerned that this patient has not followed on with an orthopedic surgeon. I will give the patient the contact information of the orthopedic urgent care that does take [facility]. I instructed the patient and her daughter that she should follow-up with an orthopedic surgeon. The surgical incision sites are healing well without evidence of infection or other complication. The patient has a hemorrhoid from straining and I will give the family a suppository to use. At this time, I do not identify an emergency medical condition. Patient and the daughter given close return precautions and follow-up instructions. Last Vital Signs Date Time Temp Pulse Resp B/P (MAP) Pulse Ox O2 Delivery O2 Flow Rate FiO2 11/26/20 20:32 97.4 76 17 127/75 95 Room Air Status: improved Disposition: HOME, SELF-CARE Condition: Improved Referrals: NOT CHOSEN IPA/,REFERRING (PCP) Becky Wild DO Nov 26, 2020 21:07
[2020-11-26] MEDS ORDERED: ANUSOL-HC25 MG RECTAL (21:30)
[2020-11-26] MEDS ORDERED: IBUPROFEN600 M1 ORAL (21:30)
[2020-11-26] MEDS ORDERED: COLACE100 MG ORAL (21:30)
[2020-11-26] MEDS ORDERED: HYDROCODON-ACE1 EAC1 PO (21:30)
== END 2020-11-26 21:56 | disposition home or self-care (01) ==
LOC: EMR 20:02
DX: G89.18 Other acute postprocedural pain (principal); K64.4 Residual hemorrhoidal skin tags; E11.9 Type 2 diabetes mellitus without complications; Z96.642 Presence of left artificial hip joint
CPT/HCPCS: 99281